=== PATIENT | male | born 1975 | race Caucasian/White ===

== ENCOUNTER 2024-05-28 19:40 | Emergency (ER) | payer SELFPAY ==
[2024-05-28 20:08] VITALS: BP 195/117; PULSE 89; TEMP 36.7; O2SAT 98; BMI 43.0
--- NOTE | 2024-05-28 20:12 | XR_ITS ---
The [place] [id number] Patient Name: ASIA SHELL MRN: [id number] date: 1975 Sex: M Assigned Patient Location: ER Current Patient Location: Accession/Order Number: [id number] Exam Date: 05/28/2024 20:19 Report Date: 05/28/2024 21:44 At the request of: SALVADOR SCHMIDT Procedure: XR shoulder LT min 2V EXAM: XR shoulder LT min 2V , 05/28/2024 HISTORY: injury COMPARISON: Previous x-ray from 2019 and MRI left shoulder from 2019. TECHNIQUE: X-rays of the left shoulder, 3 views. FINDINGS: Moderate degenerative changes of the left acromioclavicular joint. Mild degenerative changes at the glenohumeral articulation. No fracture or dislocation. Bones are well-mineralized. XR/XR shoulder LT min 2V IMPRESSION: No fracture or dislocation left shoulder. Electronically authenticated by: ALONDRA SCHWAB Date: 05/28/2024 21:44
--- NOTE | 2024-05-28 20:12 | XR_ITS ---
The [address] [address] Patient Name: ASIA SHELL MRN: [id number] date: 1975 Sex: M Assigned Patient Location: ER Current Patient Location: Accession/Order Number: [id number] Exam Date: 05/28/2024 20:19 Report Date: 05/28/2024 21:44 At the request of: SALVADOR SCHMIDT Procedure: XR forearm LT 2V EXAM: XR forearm LT 2V HISTORY: injury COMPARISON: None. TECHNIQUE: 2 views of the left forearm FINDINGS: No acute fracture of the left radius and ulna is seen. Soft tissues appear unremarkable. XR/XR forearm LT 2V IMPRESSION: No acute fracture of the left radius and ulna. Electronically authenticated by: JERICA ELLER Date: 05/28/2024 21:44
--- NOTE | 2024-05-28 20:26 | XR_ITS ---
The [address] [address] Patient Name: ASIA SHELL MRN: [id number] date: 1975 Sex: M Assigned Patient Location: ER Current Patient Location: ER Accession/Order Number: [id number] Exam Date: 05/28/2024 20:19 Report Date: 05/28/2024 21:45 At the request of: SALVADOR SCHMIDT Procedure: XR wrist LT min 3V EXAMINATION: XR wrist LT min 3V, , 05/28/2024 8:19 PM EDT INDICATION: injury HISTORY: Ordering Provider Reason for Exam: injury Technologist Note: Additional: COMPARISON: None. TECHNIQUE: Left wrist x-ray: 3 view(s). FINDINGS: No acute fracture. Joint alignment is anatomic. Joint spaces are preserved. Soft tissues are within normal limits. XR/XR wrist LT min 3V IMPRESSION: No acute fracture or traumatic malalignment. Electronically authenticated by: JERICA ELLER Date: 05/28/2024 21:45
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
== END 2024-05-28 21:38 | disposition home or self-care (01) ==
PROVIDERS: Emergency Provider Emergency Medicine; PCP Internal Medicine
DX: S46.912A Strain of unspecified muscle, fascia and tendon at shoulder and upper arm level, left arm, initial encounter (principal); S60.212A Contusion of left wrist, initial encounter; V03.10XA Pedestrian on foot injured in collision with car, pick-up truck or van in traffic accident, initial encounter
CPT/HCPCS: 73030; 73090; 73110; 99283

== ENCOUNTER 2024-12-27 02:30 | Emergency (ER) | payer OTHER, SELFPAY ==
--- OUTSIDE RECORDS SUMMARY | 2024-12-24 14:22 | XMS_ITS ---
Author Name Auto Generated Organization OHIP Support Name Relationship Address Phone MOFFIT, RAYGAN Next of Kin Unknown [phone] MOFFIT, RAYGAN Next of Kin Unknown [phone] MOFFIT, RAYGAN Next of Kin Unknown [phone] MOFFIT, RAYGAN Next of Kin Unknown [phone] MOFFIT, RAYGAN Next of Kin Unknown [phone] MOFFIT, RAYGAN Next of Kin Unknown [phone] MOFFIT, RAYGAN Next of Kin Unknown [phone] MOFFIT, RAYGAN Next of Kin Unknown [phone] MOFFIT, RAYGAN Next of Kin Unknown [phone] MOFFIT, RAYGAN Next of Kin Unknown [phone] MOFFIT, RAYGAN Next of Kin Unknown [phone] MOFFIT, RAYGAN Next of Kin Unknown [phone] MOFFIT, RAYGAN Next of Kin Unknown [phone] MOFFIT, RAYGAN Next of Kin Unknown [phone] MOFFIT, RAYGAN Next of Kin Unknown [phone] MOFFIT, RAYGAN Next of Kin Unknown [phone] MOFFIT, RAYGAN Next of Kin Unknown [phone] MOFFIT, RAYGAN Next of Kin Unknown [phone] MOFFIT, RAYGAN Next of Kin Unknown [phone] MOFFIT, RAYGAN Next of Kin Unknown [phone] MOFFIT, RAYGAN Next of Kin Unknown [phone] MOFFIT, RAYGAN Next of Kin Unknown [phone] MOFFIT, RAYGAN Next of Kin Unknown [phone] MOFFIT, RAYGAN Next of Kin Unknown [phone] MOFFIT, RAYGAN Next of Kin Unknown +[phone] [facility] [place] Next of Kin Unknown +[phone] Care Team Providers Care Outpatient Services Director Name Role Phone Dmitri RAGLAND Attending Unavailable Dmitri RAGLAND Admitting Unavailable Dmitri RAGLAND Attending Unavailable Dmitri RAGLAND Admitting Unavailable Brown, DO Janusz A Admitting Unavailable Brown, DO Janusz A Attending Unavailable Brown, DO Janusz A Referring Unavailable Brown, DO Janusz A Admitting Unavailable Brown, DO Janusz A Attending Unavailable Brown, DO Janusz A Referring Unavailable Dmitri RAGLAND Attending Unavailable ELLYN, Dmitri Green Referring Unavailable Brown, DO Janusz A Admitting Unavailable Brown, DO Janusz A Attending Unavailable Brown, DO Janusz A Referring Unavailable Dmitri RAGLAND Attending Unavailable ELLYN, Dmitri Green Attending Unavailable ELLYN, Dmitri Green Attending Unavailable Cammy Esqueda Attending Unavailable Danny Gan Attending Unavailable Brown, DO Janusz A Admitting Unavailable Brown, DO Janusz A Attending Unavailable Brown, DO Janusz A Referring Unavailable BROWN, JANUSZ A Attending Unavailable BROWN, JANUSZ A Referring Unavailable BROWN, JANUSZ A Attending Unavailable BROWN, JANUSZ A Attending Unavailable ANA LILIA GARCIA Attending Unavailable BROWN, JANUSZ A Referring Unavailable BRJI CRUZ Attending Unavailable BROWN, JANUSZ A Referring Unavailable KELBLEY, MICHELLE Attending Unavailable BROWN, JANUSZ A Referring Unavailable KELBLEY, MICHELLE Attending Unavailable BROWN, JANUSZ A Referring Unavailable KELBLEY, MICHELLE Attending Unavailable BROWN, JANUSZ A Referring Unavailable BRJI CRUZ Attending Unavailable BROWN, JANUSZ A Referring Unavailable BRJI CRUZ Attending Unavailable BROWN, JANUSZ A Referring Unavailable KELBLEY, MICHELLE Attending Unavailable BROWN, JANUSZ A Referring Unavailable KELBLEY, MICHELLE Attending Unavailable BROWN, JANUSZ A Referring Unavailable KELBLEY, MICHELLE Attending Unavailable BROWN, JANUSZ A Referring Unavailable BROWN, JANUSZ A Referring Unavailable BROWN, JANUSZ A Attending Unavailable BROWN, JANUSZ A Referring Unavailable BROWN, JANUSZ A Attending Unavailable BROWN, JANUSZ A Referring Unavailable KELBLEY, MICHELLE Attending Unavailable BROWN, JANUSZ A Referring Unavailable BLACKSANA LILIA TRIANA Attending Unavailable BROWN, JANUSZ A Referring Unavailable BROWN, JANUSZ A Attending Unavailable BRJI CRUZ Attending Unavailable BROWN, JANUSZ A Referring Unavailable BLACKSANA LILIA TRIANA Attending Unavailable BROWN, JANUSZ A Referring Unavailable KELBLEY, MICHELLE Attending Unavailable BROWNJANUSZ Referring Unavailable MICHELLE MORAN Attending Unavailable MELITONJANUSZ Referring Unavailable MICHELLE MORAN Attending Unavailable JANUSZ COELHO Referring Unavailable MICHELLE MORAN Attending Unavailable JANUSZ COELHO Referring Unavailable PROBLEMS No Problem Records Found PROCEDURES No Procedure Records Found RESULTS PATIENT EDUCATION Observed: 10/30/2024 11:39 AM Status: C Source: [facility] Patient Education Cardiovascular Hypertension, Adult Hypertension is another name for high blood pressure. High blood pressure forces your heart to work harder to pump blood. This can cause problems over time. There are two numbers in a blood pressure reading. There is a top number (systolic) over a bottom number (diastolic). It is best to have a blood pressure that is below 120/80. What are the causes? The cause of this condition is not known. Some other conditions can lead to high blood pressure. What increases the risk? Some lifestyle factors can make you more likely to develop high blood pressure: ??? Smoking. ??? Not getting enough exercise or physical activity. ??? Being overweight. ??? Having too much fat, sugar, calories, or salt (sodium) in your diet. ??? Drinking too much alcohol. Other risk factors include: ??? Having any of these conditions: ? Heart disease. ? Diabetes. ? High cholesterol. ? Kidney disease. ? Obstructive sleep apnea. ??? Having a family history of high blood pressure and high cholesterol. ??? Age. The risk increases with age. ??? Stress. What are the signs or symptoms? High blood pressure may not cause symptoms. Very high blood pressure (hypertensive crisis) may cause: ??? Headache. ??? Fast or uneven heartbeats (palpitations). ??? Shortness of breath. ??? Nosebleed. ??? Vomiting or feeling like you may vomit (nauseous). ??? Changes in how you see. ??? Very bad chest pain. ??? Feeling dizzy. ??? Seizures. How is this treated? This condition is treated by making healthy lifestyle changes, such as: ? Eating healthy foods. ? Exercising more. ? Drinking less alcohol. ??? Your doctor may prescribe medicine if lifestyle changes do not help enough and if: ? Your top number is above 130. ? Your bottom number is above 80. ??? Your personal target blood pressure may vary. Follow these instructions at home: Eating and drinking ??? If told, follow the DASH eating plan. To follow this plan: ? Fill one half of your plate at each meal with fruits and vegetables. ? Fill one fourth of your plate at each meal with whole grains. Whole grains include whole-wheat pasta, brown rice, and whole-grain bread. ? Eat or drink low-fat dairy products, such as skim milk or low-fat yogurt. ? Fill one fourth of your plate at each meal with low-fat (lean) proteins. Low- fat proteins include fish, chicken without skin, eggs, beans, and tofu. ? Avoid fatty meat, cured and processed meat, or chicken with skin. ? Avoid pre-made or processed food. ??? Limit the amount of salt in your diet to less than 1,500 mg each day. ??? Do not drink alcohol if: ? Your doctor tells you not to drink. ? You are , may be , or are planning to become . ??? If you drink alcohol: ? Limit how much you have to: ? 0?1 drink a day for women. ? 0?2 drinks a day for men. ? Know how much alcohol is in your drink. In the [place] one drink equals one 12 oz bottle of beer (355 mL), one 5 oz glass of wine (148 mL), or one 1? oz glass of hard liquor (44 mL). Lifestyle ??? Work with your doctor to stay at a healthy weight or to lose weight. Ask your doctor what the best weight is for you. ??? Get at least 30 minutes of exercise that causes your heart to beat faster (aerobic exercise) most days of the week. This may include walking, swimming, or biking. ??? Get at least 30 minutes of exercise that strengthens your muscles (resistance exercise) at least 3 days a week. This may include lifting weights or doing Pilates. ??? Do not smoke or use any products that contain nicotine or tobacco. If you need help quitting, ask your doctor. ??? Check your blood pressure at home as told by your doctor. ??? Keep all follow-up visits. Medicines ??? Take dqsl-fth-orszfra and prescription medicines only as told by your doctor. Follow directions carefully. ??? Do not skip doses of blood pressure medicine. The medicine does not work as well if you skip doses. Skipping doses also puts you at risk for problems. ??? Ask your doctor about side effects or reactions to medicines that you should watch for. Contact a doctor if: ??? You think you are having a reaction to the medicine you are taking. ??? You have headaches that keep coming back. ??? You feel dizzy. ??? You have swelling in your ankles. ??? You have trouble with your vision. Get help right away if: ??? You get a very bad headache. ??? You start to feel mixed up (confused). ??? You feel weak or numb. ??? You feel faint. ??? You have very bad pain in your: ? Chest. ? Belly (abdomen). ??? You vomit more than once. ??? You have trouble breathing. These symptoms may be an emergency. Get help right away. Call 911. ??? Do not wait to see if the symptoms will go away. ??? Do not drive yourself to the hospital. Summary ??? Hypertension is another name for high blood pressure. ??? High blood pressure forces your heart to work harder to pump blood. ??? For most people, a normal blood pressure is less than 120/80. ??? Making healthy choices can help lower blood pressure. If your blood pressure does not get lower with healthy choices, you may need to take medicine. This information is not intended to replace advice given to you by your health care provider. Make sure you discuss any questions you have with your health care provider. Document Revised: 05/12/2022 Document Reviewed: 05/12/2022 [employer] Patient Education ? 2023 [employer]ENT Sleep Apnea Sleep apnea affects breathing during sleep. It causes breathing to stop for 10 seconds or more, or to become shallow. People with sleep apnea usually snore loudly. It can also increase the risk of: ??? Heart attack. ??? Stroke. ??? Being very overweight (obese). ??? Diabetes. ??? Heart failure. ??? Irregular heartbeat. ??? High blood pressure. The goal of treatment is to help you breathe normally again. What are the causes? The most common cause of this condition is a collapsed or blocked airway. There are three kinds of sleep apnea: ??? Obstructive sleep apnea. This is caused by a blocked or collapsed airway. ??? Central sleep apnea. This happens when the brain does not send the right signals to the muscles that control breathing. ??? Mixed sleep apnea. This is a combination of obstructive and central sleep apnea. What increases the risk? Being overweight. ??? Smoking. ??? Having a small airway. ??? Being older. ??? Being male. ??? Drinking alcohol. ??? Taking medicines to calm yourself (sedatives or tranquilizers). ??? Having family members with the condition. ??? Having a tongue or tonsils that are larger than normal. What are the signs or symptoms? Trouble staying asleep. ??? Loud snoring. ??? Headaches in the morning. ??? Waking up gasping. ??? Dry mouth or sore throat in the morning. ??? Being sleepy or tired during the day. If you are sleepy or tired during the day, you may also: ??? Not be able to focus your mind (concentrate). ??? Forget things. ??? Get angry a lot and have mood swings. ??? Feel sad (depressed). ??? Have changes in your personality. ??? Have less interest in sex, if you are female. ??? Be unable to have an erection, if you are male. How is this treated? Sleeping on your side. ??? Using a medicine to get rid of mucus in your nose (decongestant). ??? Avoiding the use of alcohol, medicines to help you relax, or certain pain medicines (narcotics). ??? Losing weight, if needed. ??? Changing your diet. ??? Quitting smoking. ??? Using a machine to open your airway while you sleep, such as: ? An oral appliance. This is a mouthpiece that shifts your lower jaw forward. ? A CPAP device. This device blows air through a mask when you breathe out (exhale). ? An EPAP device. This has valves that you put in each nostril. ? A BIPAP device. This device blows air through a mask when you breathe in (inhale) and breathe out. ??? Having surgery if other treatments do not work. Follow these instructions at home: Lifestyle ??? Make changes that your doctor recommends. ??? Eat a healthy diet. ??? Lose weight if needed. ??? Avoid alcohol, medicines to help you relax, and some pain medicines. ??? Do not smoke or use any products that contain nicotine or tobacco. If you need help quitting, ask your doctor. General instructions ??? Take nrgn-vzg-hwdsvyg and prescription medicines only as told by your doctor. ??? If you were given a machine to use while you sleep, use it only as told by your doctor. ??? If you are having surgery, make sure to tell your doctor you have sleep apnea. You may need to bring your device with you. ??? Keep all follow-up visits. Contact a doctor if: ??? The machine that you were given to use during sleep bothers you or does not seem to be working. ??? You do not get better. ??? You get worse. Get help right away if: ??? Your chest hurts. ??? You have trouble breathing in enough air. ??? You have an uncomfortable feeling in your back, arms, or stomach. ??? You have trouble talking. ??? One side of your body feels weak. ??? A part of your face is hanging down. These symptoms may be an emergency. Get help right away. Call your local emergency services (911 in the [place] ??? Do not wait to see if the symptoms will go away. ??? Do not drive yourself to the hospital. Summary ??? This condition affects breathing during sleep. ??? The most common cause is a collapsed or blocked airway. ??? The goal of treatment is to help you breathe normally while you sleep. This information is not intended to replace advice given to you by your health care provider. Make sure you discuss any questions you have with your health care provider. Document Revised: 03/02/2022 Document Reviewed: 07/02/2021 [employer] Patient Education ? 2023 [employer] FAMILY MEDICINE OFFICE/CLINI C NOTE Observed: 10/30/2024 10:43 AM Status: F Source: [facility] Family Medicine Office/Clini c Note Chief Complaint Patient here for yearly Preventive Exam--had labs done. Had left shoulder surgery 09-13-[address] Coelho. Hasn't smoked x 2 months. HPI Staff Last colonoscopy 09-29-2021 History of Present Illness Here for preventive visit. He had L shoulder surgery last month. He is recovering from that. He has htn. He denies CP or SOB. He quit smoking and has gained weight. He wants to get his weight down. Review of Systems PHQ Score Initial Depression Screen Score: 0 SCORE Physical Exam Vitals & Measurements T: 36.7 ???C(Oral) HR: 71(Peripheral) BP: 132/84 SpO2: 96% HT: 180 cm HT: 71 in WT: 326.284 lb WT: 148 kg BMI: 45.68 General: Well developed, well nourished, in no acute distress Eyes: Pupils equal, round, and reactive to light. Conjunctivae and sclerae normal, and extraocular movements intact Ears: TM clear, grossly normal hearing Nose: No deformity, discharge, inflammation, or lesions Mouth: MMM. Oropharynx and posterior pharynx without lesions or exudates. Tongue WNL Neck: _no bruit Lungs: Normal respiratory effort and clear to auscultation Cardio: Regular rate and rhythm, normal S1 and S2, no murmur, no rub Abdomen: Soft, non-distended, non-tender Musculoskeletal: No joint swelling or synovitis noted Extremity: No clubbing, cyanosis or edema. Neurologic: Grossly normal Skin: No rashes, ulcerations, or suspicious lesions Mental Status: Alert and oriented x3. Normal mood and affect Assessment/Plan 1. Preventative health care (Z00.00: Encounter for general adult medical examination without abnormal findings) He is up to date on labs He had colonoscopy in 2021 and is due in 2026 2. Hypertension (I10: Essential (primary) hypertension) stay on amlodipine try to get weight down Ordered: [facility] [place] Internal Ambulatory Referral 3. Hyperlipidemia, mixed (E78.2: Mixed hyperlipidemia) Chol: 215 mg/dL High (10/22/24 10:00:00) HDL: 68 mg/dL (10/22/24 10:00:00) LDL Direct: 150 mg/dL High (10/22/24 10:00:00) Tri mg/dL (10/22/24 10:00:00) VLDL: 18 mg/dL (10/22/24 10:00:00) will send to maxillofacial prosthetics dentist Ordered: [facility] [place] Internal Ambulatory Referral 4. Fasting hyperglycemia (R73.01: Impaired fasting glucose) Hgb A1C %: 5.5 % (10/22/24 10:00:00) Ordered: [facility] [place] Internal Ambulatory Referral 5. Erectile dysfunction (N52.9: Male erectile dysfunction, unspecified) He would like try Cialis Ordered: tadalafil, 10 mg = 1 tab(s), Oral, Daily, PRN for erectile dysfunction, # 10 tab(s), Refills(s) 5, Pharmacy: [facility]/pharmacy #[id number], 180, cm, 10/30/24 11:16:00 EDT, Height/Length Dosing, 148, kg, 10/30/24 11:16:00 EDT, Weight Dosing 6. Encounter for weight management (Z76.89: Persons encountering health services in other specified circumstances) will refer to maxillofacial prosthetics dentist first we also discussed meds like Mounjaro and Ozempic Ordered: [facility] [place] Internal Ambulatory Referral 7. Adult BMI 45.0-49.9 kg/sq m (Z68.42: Body mass index [BMI] 45.0-49.9, adult) The standard range for ages 18 and older is >=18.5 and < 25 kg/m2. Your BMI today was above this range, this falls in the overweight to obese category and there are medical benefits to weight loss. We can offer counselling, referral, and/or medical support in addressing this problem. Your BMI and weight management will be followed at subsequent visits. 8. Class 3 severe obesity due to excess calories with body mass index (BMI) of 45.0 to 49.9 in adult (E66.813: Obesity, class 3) 9. Obstructive sleep apnea on CPAP (G47.33: Obstructive sleep apnea (adult) (pediatric)) He is compliant with CPAP and it is benefitting him Ordered: Misc Prescription, CPAP supplies, See Instructions, 1 EA, 1, Uses nightly with his CPAP, Supply Follow-up With When Contact Information ELLYN SINGLETON, Dmitri K, MED In 6 months [facility] [address] [place] [address]- Additional Instructions: Dmitri RAGLAND MD, MED In 6 months [facility] [address], [place] [address]- Additional Instructions: Patient Education Sleep Apnea, Lsit-ei-Obbm Hypertension, Adult, Sctt-pk-Jmjx Problem List/Past Medical History Ongoing Chronic sinusitis Encounter for weight management Erectile dysfunction Family history of early CAD Fasting hyperglycemia Hearing loss in left ear Hyperlipidemia, mixed Hypertension IBS (irritable bowel syndrome) Insomnia Left knee pain Left rotator cuff tear Obstructive sleep apnea Preventative health care Shift work sleep disorder Tubular adenoma of colon Historical No qualifying data Procedure/Surgical History Arthroscopy of shoulder (09/13/2024), Colonoscopy (09/29/2021), Arthroscopy of shoulder (03/06/2020), Excision of lipoma, right wrist fusion. Medications acetaminophen 500 mg Tab, 500 mg= 1 tab(s), Oral, q4hr amLODIPine 5 mg Tab, 5 mg= 1 tab(s), Oral, Daily, 4 refills CeleBREX 200 mg Cap, 200 mg= 1 cap(s), Oral, Daily, 1 refills Cialis 10 mg Tab, 10 mg= 1 tab(s), Oral, Daily, PRN, 5 refills Colace 100 mg Cap, 100 mg= 1 cap(s), Oral, BID, PRN CPAP supplies, See Instructions, 1 refills oxyCODONE 5 mg Tab, See Instructions, PRN Allergies penicillin (Unknown) Social History Alcohol - Denies Alcohol Use, 02/27/2020 Current. Beer. 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 Never Smokeless Tobacco Use:. Cigarettes, 10/30/2024 Family History Acute myocardial infarction: Mother. Alive: Mother and Father. Primary malignant neoplasm of prostate: Father. Immunizations Vaccine Date Status Comments influenza virus vaccine, inactivated - Not Given Patient Refusesinfluenza virus vaccine, inactivated - Not Given Patient Refusesinfluenza virus vaccine, inactivated - Not Given Patient SanxewmSMEX-QlQ-2 (COVID-19) mRNA BNT-162b2 vax 09/01/2021 Recorded influenza virus vaccine, inactivated - Not Given Postpone due to refusal SARS-CoV-2 (COVID-19) mRNA BNT-162b2 vax 11/24/2020 [facility] SARS-CoV-2 (COVID-19) mRNA BNT-162b2 vax 11/03/2020 [facility]ed [facility] influenza virus vaccine, inactivated - Not Given Patient Refuses Result Comment: Electronical ly Signed By: ELLYN SINGLETON, Dmitri Green\.br\Date and Time Signed: 10/30/24 11:39 EDT AMBULATORY VISIT SUMMARY Observed: 10/30 10:43 AM Status: F Source: [facility] Ambulatory Visit Summary ASIA SHELL :1975 Visit Date:10/30/2024 Ambulatory Visit Instructions Your Diagnosis Preventative health care Hypertension Hyperlipidemia, mixed Fasting hyperglycemia Erectile dysfunction Encounter for weight management Adult BMI 45.0-49.9 kg/sq m Class 3 severe obesity due to excess calories with body mass index (BMI) of 45.0 to 49.9 in adult Obstructive sleep apnea on CPAP Your Care Team Attending Physician - Dmitri RAGLAND MD Primary Care Physician - Dmitri RAGLAND MD [facility] ([facility] supplies) tadalafil (Cialis 10 mg Tab) Contact prescribing physician if questions or concerns acetaminophen (acetaminophen 500 mg Tab) amlodipine (amLODIPine 5 mg Tab) celecoxib (CeleBREX 200 mg Cap) docusate (Colace 100 mg Cap) oxycodone (oxyCODONE 5 mg Tab) Procedures Performed Arthroscopy of shoulder (09/13/2024), Colonoscopy (09/29/2021), Arthroscopy of shoulder (03/06/2020), Excision of lipoma, right wrist fusion. Discharge Vitals Temperature (Oral) 36.7 ???C Heart Rate (Peripheral) 71 Blood Pressure 132/84 Height 180 cm Height 71 in Weight 148 kg Weight 326.284 lb BMI 45.68 What to do next Scheduled Follow-Up Appointments Monday 3:00 PM EDT With: Dmitri RAGLAND MD Where: [facility] [address] [place] [address]- You Need to Schedule the Following Appointments Follow Up with Dmitri RAGLAND MD, NISREEN When: In 6 months Where: [facility] [address] [place] [address]- Follow Up with Dmitri RAGLAND MD, MED When: In 6 months Where: [facility] [address] [place] [address]- Medications What How Much When Why Instructions New tadalafil (Cialis 10 mg Tab) 1 Tablets By Mouth Every day as needed for for erectile dysfunction Erectile dysfunction Refills: 5 Pickup at [facility]/pharmacy #[id number] Unchanged Misc Prescription (CPAP supplies) See instructions Obstructive sleep apnea Uses nightly with his CPAP Printed Prescription Unchanged acetaminophen (acetaminophen 500 mg Tab) 1 Tablets By Mouth Every 4 hours Contact prescribing physician if questions or concerns Unchanged amlodipine (amLODIPine 5 mg Tab) 1 Tablets By Mouth Every day Hypertension Contact prescribing physician if questions or concerns Unchanged celecoxib (CeleBREX 200 mg Cap) 1 Capsules By Mouth Every day start after finishing ketorolac Contact prescribing physician if questions or concerns Unchanged docusate (Colace 100 mg Cap) 1 Capsules By Mouth 2 times a day as needed for for constipation Contact prescribing physician if questions or concerns Unchanged oxycodone (oxyCODONE 5 mg Tab) See instructions 1-2 tab(s) Oral q4hr Contact prescribing physician if questions or concerns Pharmacy Information [facility]/pharmacy #[id number]: [address], [place] [id number] [phone] Allergies penicillin (Unknown) Problems Ongoing - Any problem that you are currently receiving treatment for. Chronic sinusitis Encounter for weight management Erectile dysfunction Family history of early CAD Fasting hyperglycemia Hearing loss in left ear Hyperlipidemia, mixed Hypertension IBS (irritable bowel syndrome) Insomnia Left knee pain Left rotator cuff tear Obstructive sleep apnea Preventative health care Shift work sleep disorder Tubular adenoma of colon Patient Survey You may receive a survey via text or e-mail asking about your office visit. Please share your experience with us by completing your survey. We appreciate your feedback and thank you for choosing us for your care. Education Materials Sleep Apnea Sleep apnea affects breathing during sleep. It causes breathing to stop for 10 seconds or more, or to become shallow. People with sleep apnea usually snore loudly. It can also increase the risk of: ??? Heart attack.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 Description of the procedure, risks, benefits, and alternatives was provided, The patient's questions were addressed. Time out: Confirmed correct patient, procedure and site. Time: Date/Time 09/13/2024 12:20:00. Indication: Block for postoperative pain management as requested by surgeon. Anesthesia Method: IV Sedation with monitored anesthesia care, The patient remained awake and able to interact in a meaningful way throughout the procedure. Preparation: The patient was placed in the following position Sitting, Continuous pulse oximetry applied, Using maximal sterile barrier technique per current [facility] guidelines including hand hygeine, Guidance (Ultrasound used to identify anatomical landmarks, Using sterile gel and probe covers, Permanent image retained), The site was prepped with ChloraPrep. Procedure: Anesthetic Agent attempt x 2 with small probe and 50mm needle- unable to maintain quality image and coordinate needle visualization do to patient size; 3rd attempt with large probe and 100 needle- skin/SQ with 3cc 2% lido; 21g 100mm insulated echogenic block needle with ultrasound; 10 cc .5% bupiv and 133mg exparel in 10cc in increments; needle tip visualized throughout; low pressure injection; no motor response ant 2.5 mAmps, Needle was inserted without pain or parasthesia in the conscious patient, Number of attempts 3, Negative attempt at aspiration for blood, Medial and lateral spread of the anesthestic was observed, Periodic negative attempts at aspiration of blood were made as the local was injected, No pain or parathesia were elicited with injection of the anesthetic in the conscious patient, It was idetified that the correct anesthetic agent was administered to the correct site. Complications: None, The patient tolerated the procedure as expected. PROGRESS NOTE-PHYSICIAN Observed: 2024 3:42 PM Status: F Source: [facility] Progress Note-Physician Patient: ASIA SHELL Age: 49 years Sex: Male : 1975 Associated Diagnoses: None Author: Barrett Manning MD Postoperative Information Postoperative disposition: Postoperative disposition: To PACU. Optimetrix number: Optimetrix number [id number]. Anesthetic utilized: General. Regional: Interscalene Block. Health Status Allergies: Allergic Reactions (Selected) Severity Not Documented Penicillin- Unknown. Physical Examination Vital Signs 09/13/2024 15:09 EST Systolic Blood Pressure 127 mmHg Diastolic Blood Pressure 81 mmHg Mean Arterial Pressure, Monitered 96 mmHg 09/13/2024 14:55 EST Temperature Temporal Artery 36.5 DegC Heart Rate Monitored 86 bpm Respiratory Rate Monitored 15 br/min Systolic Blood Pressure 98 mmHg Diastolic Blood Pressure 71 mmHg Blood Pressure Location Right arm Mean Arterial Pressure, Cuff 80 mmHg SpO2 90 % Pain Assessment: Controlled. General: Awake, Appropriate. Respiratory: Adequate air exchange. Cardiovascular: Stable. Neurological Assessment Anesthetic outcome No anesthetic complications noted. Adequate pain relief. Review / Management Condition: Stable. Plan Transfer/Discharge: Transfer/Discharge Discharge when meets criteria ( To home ). Result Comment: Electronical ly Signed By: Barrett Manning MD\.br\Date and Time Signed: 09/13/24 15:43 EST PROGRESS NOTE-PHYSICIAN Observed: 2024 3:00 PM Status: UNK Source: [facility] Progress Note-Physician Patient: ASIA SHELL Age: 49 years Sex: Male : 1975 Associated Diagnoses: None Author: Barrett Manning MD Postoperative Information Postoperative disposition: Postoperative disposition: To PACU. Optimetrix number: Optimetrix number [id number]. Anesthetic utilized: General. Regional: Interscalene Block. Health Status Allergies: Allergic Reactions (Selected) Severity Not Documented Penicillin- Unknown. Physical Examination VS/Measurements Pain Assessment: Controlled. General: Awake, Appropriate. Respiratory: Adequate air exchange. Cardiovascular: Stable. Neurological Assessment Anesthetic outcome No anesthetic complications noted. Adequate pain relief. Review / Management Condition: Stable. Plan Transfer/Discharge: Transfer/Discharge Discharge when meets criteria ( To home ). Result Comment: duplicate- p lease delete Electronically Signed By: Barrett Manning MD\.br\Date and Time Signed: 09/27/24 12:13 EST DISCHARGE INSTRUCTIONS Observed: 025 2:30 PM Status: F Source: [facility] Discharge Instructions ASIA SHELL :1975 Visit Date:09/13/2024 Inpatient Discharge Instructions Your Care Team Admitting Physician - Janusz Coelho DO Referring Physician - Janusz Coelho DO Reason for Your Visit LEFT SHOULDER LABRAL TEAR This Is Your Medications List Misc Prescription (CPAP supplies) acetaminophen (acetaminophen 500 mg Tab) amlodipine (amLODIPine 5 mg Tab) celecoxib (CeleBREX 200 mg Cap) docusate (Colace 100 mg Cap) gabapentin (gabapentin 300 mg Cap) ketorolac (ketorolac 10 mg Tab) oxycodone (oxyCODONE 5 mg Tab) Procedure History Colonoscopy (09/29/2021), Arthroscopy of shoulder (03/06/2020), Excision of lipoma, right wrist fusion. What to do next Previously Scheduled Follow-Up Appointments Monday 11:00 AM EDT With: ELLYN SINGLETON, Dmitri Green Where: [facility] [address] [place] [address]- New Follow Up Appointments after Discharge Follow Up with Janusz Coelho When: 09/24/2024 03:30 PM EST Comments: Appointment has already been scheduled Call for any problems. Where: [address] [place] [address]- Business (1) Medications What How Much When Why Instructions Next Dose New acetaminophen (acetaminophen 500 mg Tab) 1 Tablets By Mouth Every 4 hours Pickup at [facility]/pharmacy #[id number] New celecoxib (CeleBREX 200 mg Cap) 1 Capsules By Mouth Every day Refills: 1 start after finishing ketorolac Pickup at [facility]/pharmacy #6177 New docusate (Colace 100 mg Cap) 1 Capsules By Mouth 2 times a day as needed for for constipation Pickup at [facility]/pharmacy #6177 New gabapentin (gabapentin 300 mg Cap) 1 Capsules By Mouth 3 times a day Duration: 14 Days Pickup at [facility]/pharmacy #6177 New ketorolac (ketorolac 10 mg Tab) 1 Tablets By Mouth Every 8 hours Duration: 3 Days Pickup at [facility]/pharmacy #6177 New oxycodone (oxyCODONE 5 mg Tab) See instructions 1-2 tab(s) Oral q4hr Pickup at [facility]/pharmacy #6177 Unchanged amlodipine (amLODIPine 5 mg Tab) 1 Tablets By Mouth Every day Hypertension Unchanged Misc Prescription (CPAP supplies) See instructions Obstructive sleep apnea Uses nightly with his CPAP Pharmacy Information [facility]/pharmacy #[id number]: [address], [place] [id number] [phone] Test Results No qualifying data available. Allergies penicillin (Unknown) Problems Ongoing - Any problem that you are currently receiving treatment for. Chronic sinusitis Family history of early CAD Fasting hyperglycemia Hearing loss in left ear Hyperlipidemia, mixed Hypertension IBS (irritable bowel syndrome) Insomnia Left knee pain Left rotator cuff tear Obstructive sleep apnea Preop examination Preventative health care Shift work sleep disorder Tubular adenoma of colon Education Materials [place], [place] [facility] AFTER YOUR SHOULDER ARTHROSCOPY 1. Diet: Begin with a liquid diet and advance to your normal diet as tolerated. 2. Activity: You may remove your sling for bathing and to perform gentle range of motion exercises for the hand, wrist, and elbow. Bend and straighten your elbow and wrist several times per day to minimize stiffness. Keep your elbow in close to your side when performing these exercises. Do not move your shoulder until instructed by your surgeon. Swelling after surgery is normal and this will gradually decrease over time. All sports activities are discouraged, at least until your first post-operative visit at which time we will discuss how and when to resume sports. 3. Driving: Driving is legal. If you are involved in an accident, you must be able to prove that you maintained full control of your vehicle. For this reason, it is advised that you do not drive until your strength returns. You should not operate a vehicle or heavy machinery if you are taking narcotic pain medication. 4. Pain: If pain persists despite rest, elevation, and medication, contact your surgeon. You will be given a prescription for pain medications prior to leaving the hospital. Please inform us of any known drug allergy. If you have any problems with the medication, it should be discontinued and our office notified. The sensation of splashing of fluid inside the joint is not cause for concern. It represents residual fluids from surgery and they will be absorbed. Elevation of the arm and application of an ice pack will minimize swelling and discomfort in the first 48 hours after surgery. 5. Bandage: Soft compression dressing has been applied to your shoulder. This dressing should be comfortable and absorb any leakage of fluid or blood from your operated shoulder. Although the dressing may become moist or blood stained, this is not usually a cause for concern. If this persists, notify your surgeon. You may remove the dressing 48 hours after your surgery. If you have a bandage in your armpit, leave this in place until follow up. Apply betadine and band-aids to the small incisions once or twice daily as needed. 6. Incisions: The portals of entry may be sore and develop bruising over the next several days. The bruising eventually resolves and does not require any special care. Do not apply creams or lotions to your shoulder. Your portals will heal well on their own. 7. Bathing: You may shower 48 hours after surgery. Bathing or soaking in water should be avoided until your first post-operative visit. 8. Precautions: If you develop fever (101 degrees or above), increasing pain (not relieved by rest, elevation, ice, and medication as prescribed), redness or swelling in your shoulder or arm, please contact the office or the hospital. If you notice increased drainage from the operative portals after the third day, this should also be reported. 9. Return Visit: Your first post-operative follow-up appointment is generally between 7 and 14 days after discharge from the hospital. You will be given an appointment card with your appointment information. Do not hesitate to call the office or the hospital if any problems or questions arise before your appointment. Janusz Coelho, DO [facility] [address] [place] [address] Reviewed: Common Emergency Awareness Tips IS IT A STROKE? Act FAST and Check for these signs: FACE Does the face look uneven? ARM Does one arm drift down? SPEECH Does their speech sound strange? TIME Call at any sign of stroke Heart Attack Signs Chest discomfort: Most heart attacks involve discomfort in the center of the chest and lasts more than a few minutes, or goes away and comes back. It can feel like uncomfortable pressure, squeezing, fullness or pain. Discomfort in upper body: Symptoms can include pain or discomfort in one or both arms, back, neck, jaw or stomach. Shortness of breath: With or without discomfort. Other signs: Breaking out in a cold sweat, nausea, or lightheaded. Remember, MINUTES DO MATTER. If you experience any of these heart attack warning signs, call to get immediate medical attention! Patient Survey You may receive a survey in the mail asking you about your stay with us. We want to hear from you, please share your experience with us by completing your survey. Thank you for choosing [facility]. Hermelinda Award Nomination The HERMELINDA (Diseases Attacking the Immune SYstem) Award is an international recognition program that honors and celebrates the skillful, compassionate care nurses provide every day. Anyone who experiences or observes amazing care being provided by a nurse is encouraged to submit a nomination. To nominate your nurse, use your smart phone to scan the QR code below. Patient Portal You may access all of your results and other medical record information on our secure patient portal. If you are not signed up for this yet, please contact [employer] at [phone] to get signed up today. Patient Name: ASIA SHELL I have received this information and my questions have been answered. Patient/Shove Up Name: Patient/Shove Up Signature: Relationship to Patient: Witness Name/Signature: Date: Result Comment: Electronical ly Signed By: Alvaro ZAVALA, Nilsa Alejandra\.br\Date and Time Signed: 09/13/24 14:31 EST PATIENT EDUCATION - TEXT Observed: 09/13 2:30 PM Status: C Source: [facility] Patient Education - Text [place], [place] [facility] AFTER YOUR SHOULDER ARTHROSCOPY 1. Diet: Begin with a liquid diet and advance to your normal diet as tolerated. 2. Activity: You may remove your sling for bathing and to perform gentle range of motion exercises for the hand, wrist, and elbow. Bend and straighten your elbow and wrist several times per day to minimize stiffness. Keep your elbow in close to your side when performing these exercises. Do not move your shoulder until instructed by your surgeon. Swelling after surgery is normal and this will gradually decrease over time. All sports activities are discouraged, at least until your first post-operative visit at which time we will discuss how and when to resume sports. 3. Driving: Driving is legal. If you are involved in an accident, you must be able to prove that you maintained full control of your vehicle. For this reason, it is advised that you do not drive until your strength returns. You should not operate a vehicle or heavy machinery if you are taking narcotic pain medication. 4. Pain: If pain persists despite rest, elevation, and medication, contact your surgeon. You will be given a prescription for pain medications prior to leaving the hospital. Please inform us of any known drug allergy. If you have any problems with the medication, it should be discontinued and our office notified. The sensation of splashing of fluid inside the joint is not cause for concern. It represents residual fluids from surgery and they will be absorbed. Elevation of the arm and application of an ice pack will minimize swelling and discomfort in the first 48 hours after surgery. 5. Bandage: Soft compression dressing has been applied to your shoulder. This dressing should be comfortable and absorb any leakage of fluid or blood from your operated shoulder. Although the dressing may become moist or blood stained, this is not usually a cause for concern. If this persists, notify your surgeon. You may remove the dressing 48 hours after your surgery. If you have a bandage in your armpit, leave this in place until follow up. Apply betadine and band-aids to the small incisions once or twice daily as needed. 6. Incisions: The portals of entry may be sore and develop bruising over the next several days. The bruising eventually resolves and does not require any special care. Do not apply creams or lotions to your shoulder. Your portals will heal well on their own. 7. Bathing: You may shower 48 hours after surgery. Bathing or soaking in water should be avoided until your first post-operative visit. 8. Precautions: If you develop fever (101 degrees or above), increasing pain (not relieved by rest, elevation, ice, and medication as prescribed), redness or swelling in your shoulder or arm, please contact the office or the hospital. If you notice increased drainage from the operative portals after the third day, this should also be reported. 9. Return Visit: Your first post-operative follow-up appointment is generally between 7 and 14 days after discharge from the hospital. You will be given an appointment card with your appointment information. Do not hesitate to call the office or the hospital if any problems or questions arise before your appointment. Janusz Coelho DO [facility] [address] [place] [address] Reviewed: MAIN OR PACU II RECORD Observed: 025 12:58 PM Status: F Source: [facility] Main OR PACU II Record PACU Phase II Document Type FT Summary Primary Physician: Janusz Coelho DO Finalized Date/Time: 09/13/24 17:06:15 Pt. Name: ASIA SHELL/Sex: 1975 Male Med Rec #: [id number] Physician: Janusz Coelho DO Financial #: [id number] Pt. Type: A Room/Bed: [place] [address] Admit/Disch: 09/13/24 08:53:31 - Institution: Case Times PACU II FT Pre-Care Text: Identifies barriers to communication and implements measures to provide psychological support and determines knowledge level Develops individualized plan of care, and ensures continuity of care Maintains patient's dignity and privacy, and maintains patient confidentiality Identifies and reports philosophical, cultural, and spiritual beliefs and values Identifies individual values and wishes concerning care administers prescribed antibiotic therapy and immunizing agents as ordered, Evaluates postoperative tissue perfusion Implements thermoregulation measures, and monitors body temperature Evaluates postoperative respiratory status Evaluates postoperative cardiac status Evaluates postoperative neurological status Assesses pain control, collaborated in initiating patient-controlled analgesia and implements alternative methods of pain control Verifies allergies, administers prescribed medications and solutions, evaluates response to medications Entry 1 In PACU II 09/13/24 15:00:00 Discharge from PACU 09/13/24 16:45:00 II Outcomes Met? Yes Last Modified By: Nilsa Simon RN 09/13/24 17:06:08 Post-Care Text: The patient demonstrates knowledge of the expected response to the operative or invasive procedure The patient's care is consistent with the individualized perioperative plan of care The patient's right to privacy is maintained The patient's value system, lifestyle, ethnicity, and culture are considered, respected, and incorporated into the perioperative plan of care The patient participates in decisions affecting his or her perioperative plan of care. The patient is free from signs and symptoms of infection The patient has wound/tissue perfusion consistent with or improved from baseline levels established preoperatively The patient is at or returning to normothermia at the conclusion of the immediate postoperative period The patient's respiratory function is consistent with or improved from baseline levels established preoperatively The patient's cardiovascular status is consistent with or improved from baseline levels established preoperatively The patient's neurological status is consistent with or improved from baseline levels established preoperatively The patient demonstrates and/or reports adequate pain control throughout the perioperative period The patient received appropriate medication(s), safely administered during the perioperative period Finalized By: Nilsa Simon RN Document Signatures Signed By: Nilsa Simon RN 09/13/24 17:06 MAIN OR PREOPERATIVE RECORD Observed: 12:58 PM Status: F Source: [facility] Main OR Preoperative Record PreOp Document Type FT Summary Primary Physician: Janusz Coelho DO Finalized Date/Time: 09/13/24 13:46:06 Pt. Name: ASIA SHELL/Sex: 1975 Male Med Rec #: [id number] Physician: Janusz Coelho DO Financial #: [id number] Pt. Type: A Room/Bed: [place] [address] Admit/Disch: 09/13/24 08:53:31 - Institution: Case Times PreOp FT Pre-Care Text: Verifies consent for planned procedure, identifies individual values and wishes concerning care, includes family members in perioperative teaching Entry 1 Patient Times. In Pre Surgery 09/13/24 09:00:00 Out Pre Surgery 09/13/24 12:23:00 Outcomes Met? Yes Last Modified By: Sandra Sheikh RN 09/13/24 13:45:58 Post-Care Text: The patient participates in decisions affecting his or her perioperative plan of care Finalized By: Sandra Sheikh RN Document Signatures Signed By: Sandra Sheikh RN 09/13/24 13:46 MAIN OR INTRAOPERATIVE RECORD Observed: 09/13/2024 12:58 PM Status: C Source: [facility] Main OR Intraoperative Recor d IntraOp Document Type FT Summary Primary Physician: Janusz Coelho DO Finalized Date/Time: 09/16/24 12:14:53 Pt. Name: SUMAYAASIA/Sex: 1975 Male Med Rec #: [id number] Physician: Janusz Coelho DO Financial #: [id number] Pt. Type: A Room/Bed: [place] [address] Admit/Disch: 09/13/24 08:53:31 - 09/13/24 16:45:00 Institution: Case Times FT Entry 1 Patient Times In Room 09/13/24 12:25:00 Out Room 09/13/24 14:27:00 Procedure Times Start 09/13/24 12:58:00 Stop 09/13/24 14:17:00 Anesthesia Times Start 09/13/24 12:25:00 Stop 09/13/24 14:27:00 Block Timeout w09/13/24 11:27:00 Anesthesia Last Modified By: Sandra Sheikh RN 09/13/24 14:27:08 General Comments: BLOCK BY DR MANNING, ASSISTED BY SANDRA SHEIKH RN. HEART RATE 67, SPO2 99% ON ROOM AIR. PATIENT TAKEN BACK TO [facility] ON CART WITH SIDE RAILS UP BY SANDRA SHEIKH RN TO AWAIT DEPARTURE TO OR. HANDOFF GIVEN TO [facility] NURSE.SPO2 AND HEART RATE MONITORING RESUMED. Sandra SHAH 09/16/24 Chart opened to review and send charges [facility] Case Attendance FT Entry 1 Entry 2 Entry 3 Case Attendee Forest MUÑOZ, DOLLY OPERATOR, [facility] DO, Janusz Maciel TIME ANALYSIS CLERK, Miryam Grant. Role Performed DOLLY OPERATOR Surgeon - Primary TIME ANALYSIS CLERK Time In 09/13/24 12:25:00 09/13/24 12:50:00 09/13/24 12:25:00 Time Out 09/13/24 14:27:00 09/13/24 14:10:00 09/13/24 14:27:00 Procedure SHOULDER ARTHROSCOPY W/ SHOULDER ARTHROSCOPY W/ SHOULDER ARTHROSCOPY W/ POSSIBLE REPAIR(Left) POSSIBLE REPAIR(Left) POSSIBLE REPAIR(Left) Comments DR MANNING SUPERVISING. OUT OF ROOM [id number] Last Modified By: Joni RN, Sandra Sheikh RN, Sandra Sheikh RN, Sandra Clayton 09/13/24 14:52:16 09/13/24 14:52:16 09/13/24 14:52:16 Entry 4 Entry 5 Entry 6 Case Attendee Joni ZAVALA, Sandra Thomas SENIOR TECHNOLOGIST, Mary Justice SENIOR TECHNOLOGIST, Brenda Thomas Role Performed [employer] Consultant - Primary Scrub - Primary Staff - Other Time In 09/13/24 12:25:00 09/13/24 12:25:00 09/13/24 12:25:00 Time Out 09/13/24 14:27:00 09/13/24 14:27:00 09/13/24 12:45:00 Procedure SHOULDER ARTHROSCOPY W/ SHOULDER ARTHROSCOPY W/ SHOULDER ARTHROSCOPY W/ POSSIBLE REPAIR(Left) POSSIBLE REPAIR(Left) POSSIBLE REPAIR(Left) Comments Last Modified By: Joni RN, Sandra Sheikh RN, Sandra Sheikh RN, Sandra Clayton 09/13/24 14:52:16 09/13/24 14:52:16 09/13/24 14:52:16 Entry 7 Case Attendee Danny Conroy Role Performed Anesthesiologist Engineer Third Assistant Time In 09/13/24 13:23:00 Time Out 09/13/24 14:27:00 Procedure SHOULDER ARTHROSCOPY W/ POSSIBLE REPAIR(Left) Comments DR MANNING SUPERVISING Last Modified By: Sandra Sheikh RN 09/13/24 14:52:16 General Comments: ALVARO LYNCH, ARTHREX REP, ALSO IN ATTENDANCE. SALLY SHAHviscose cellar worker Protocols FT Pre-Care Text: Implements protective measures prior to operative or invasive procedure, confirms identity before the operative or invasive procedure, verifies operative procedure, surgical site, and laterality Entry 1 Procedure(s) SHOULDER ARTHROSCOPY W/ Patient Identity Birthday, ID Band POSSIBLE REPAIR(Left) Verified (select at Check, Patient least 2): Participation Consents / H and P Anesthesia Consent, Operative Site Present Verified H&P, Surgery/Procedure Marking Verified Consent Surgical Site Yes Laterality Verified Yes Verified Procedure Verified Yes Correct Patient Yes Position Verified Availability Equipment, Implant, Prep Dry Yes Verified (If Medication Applicable) PreOp Antibiotic Yes Time Out Forest MUÑOZ, RADHA, Queen Belen Garnett, Janusz Coelho DO, Weisbrod RNFA, Molly A, Crosby RN, Amy J, McClain CST, Kimberly A Time Out Complete 09/13/24 12:57:00 Outcomes Met? Yes Last Modified By: Sandra Sheikh RN 09/13/24 13:39:26 Post-Care Text: The patient is free from signs and symptoms of injury caused by extraneous objects Allergy Information FT Pre-Care Text: Verifies allergies Entry 1 Allergies Reviewed? Yes Allergies Reviewed Self/Patient With Outcomes Met? Yes Last Modified By: Sandra Sheikh RN 09/13/24 13:20:11 Post-Care Text: The patient received appropriate medication(s) safely administered during the perioperative period Surgical Procedures FT Entry 1 Procedure Description Procedure SHOULDER ARTHROSCOPY W/ Modifiers Left POSSIBLE REPAIR Surgeon Description LEFT SHOULDER ARTHROSCOPY WITH REVISION LABRAL REPAIR, EXTENSIVE DEBRIDEMENT Primary Procedure Yes Primary Surgeon Janusz Coelho DO Start 09/13/24 12:58:00 Stop 09/13/24 14:17:00 Anesthesia Type General Surgical Service Orthopedics Wound Class 1 - Clean Last Modified By: Sandra Sheikh RN 09/13/24 14:52:20 General Case Data FT Pre-Care Text: Classifies surgical wound, implements aseptic technique, initiates traffic control Entry 1 Case Information OR OR 5 FT Case Level Level 4 Wound Class 1 - Clean Specialty Orthopedics ASA Class 3 Preop Diagnosis LEFT SHOULDER LABRAL Postop Same As Preop Yes TEAR Postop Diagnosis LEFT SHOULDER LABRAL Outcomes Met? Yes TEAR Last Modified By: Ila Perkins CST 09/16/24 12:14:14 Post-Care Text: The patient is free from signs and symptoms of infection General Comments: 09/16/24 Chart opened to review and send charges LRoth CSFA Skin Assessment (Pre Procedure) FT Pre-Care Text: Implements protective measures to prevent skin/ tissue injury due to thermal or mechanical sources Evaluates for signs and symptoms of physical injury to skin and tissue Entry 1 Skin Integrity Intact, [employer], Warm, & Skin Abnormality No Dry Outcomes Met? Yes Last Modified By: Sandra Sheikh RN 09/13/24 13:20:32 Post-Care Text: The patient is free from signs and symptoms of injury caused by extraneous objects Patient Positioning FT Pre-Care Text: Identifies physical alterations that require additional precautions for procedure-specific positioning, verifies presence of prosthetics or corrective devices, positions the patient, evaluates the patient for signs and symptoms of injury as a result of positioning Entry 1 Procedure SHOULDER ARTHROSCOPY W/ Body Position Beach Chair POSSIBLE REPAIR(Left) Feet Uncrossed? Yes Left Arm Position Other/See Comments Right Arm Position Other/See Comments Left Leg Position Extended Right Leg Position Extended Positioning Device Safety Strap, Spider Positioner Leg Support, Spider Shoulder Positioner, Other/See Comments Press Points Checked Yes By Forest MUÑOZ, RADHA, Joni Holt RN, Kelly Bull, Vinh Ramos CST, Mleiton Khanna DO, Janusz A Outcomes Met? Yes Last Modified By: Sandra Sheikh RN 09/13/24 13:37:21 Post-Care Text: The patient is free from signs and symptoms of injury related to positioning General Comments: HEAD SECURED TO HEAD REST WTIH FOAM FACE MASK. RIGHT ARM SECURED TO PADDED ARMBOARD AT SIDE, LEFT ARM SECURED TO TRIMANO POSITIONER FOR INTRAOPERATIVE POSITIONING. SALLY SHAH Patient Care Devices FT Pre-Care Text: Implements protective measures to prevent skin/ tissue injury due to thermal or mechanical sources Entry 1 Entry 2 Entry 3 Equipment Type ARTHREX GENERATOR UNIT ARTHREX DUALWAVE INTELLICART SUCTION UNIT IRRIGATION PUMP Equipment Number CART 1 CART 1 CART 1 Equipment Setting Outcomes Met? Yes Yes Yes Last Modified By: Sandra Sheikh RN, RN, Sandra Sheikh RN, Sandra Clayton 09/13/24 13:30:48 09/13/24 13:30:48 09/13/24 13:30:48 Entry 4 Entry 5 Entry 6 Equipment Type MISTRAL FORCED AIR ORTHO ARTHREX ABRADER SHOULDER TABLE WARMING SYSTEM UNIT SYSTEM Equipment Number OB 1 CART 1 Equipment Setting 43 C /HIGH Outcomes Met? Yes Yes Yes Last Modified By: Sandra Sheikh RN, RN, Sandra Sheikh RN, Sandra Clayton 09/13/24 13:30:48 09/13/24 13:30:48 09/13/24 13:30:48 Entry 7 Entry 8 Entry 9 Equipment Type SONOSITE ULTRASOUND UNIT SPIDER/TRIMANO ARM VENA FLOW UNIT Equipment Number Equipment Setting Outcomes Met? Yes Yes Yes Last Modified By: Sandra Sheikh RN, RN, Sandra Sheikh RN, Sandra Clayton 09/13/24 13:30:48 09/13/24 13:30:48 09/13/24 13:30:48 Entry 10 Equipment Type VIDEO SYSTEM Equipment Number OR 5 Equipment Setting Outcomes Met? Yes Last Modified By: Sandra Sheikh RN 09/13/24 13:30:48 Post-Care Text: The patient is free from signs and symptoms of injury caused by extraneous objects Transport To OR FT Pre-Care Text: Transports according to individual needs. Evaluates for signs and symptoms of skin and tissue injury as a result of transfer or transport Entry 1 Via Cart By Sandra Sheikh RN Safety Precautions Side Rails Up Outcomes Met? Yes Last Modified By: Sandra Sheikh RN 09/13/24 13:34:07 Post-Care Text: The patient is free from signs and symptoms of injury related to transfer/transport Cautery FT Pre-Care Text: Implements protective measures to prevent injury due to electrical sources, and evaluates for signs and symptoms of electrical injury Entry 1 ESU Identification ESU Settings ESU Grounding Pad Site Left Thigh Hair Removal Pad No Site Pre Pad Site Clear and Intact Post Pad Site Clear and Intact Condition Condition Grounding Pad Sandra Sheikh RN By Outcomes Met? Yes Last Modified By: Sandra Sheikh RN 09/13/24 13:35:32 Post-Care Text: The patient if free from signs and symptoms of electrical injury General Comments: BOVIE PAD APPLIED, CAUTERY NOT USED. SALLY SHAH Counts Verification FT Pre-Care Text: Performs required counts Entry 1 Entry 2 Procedure(s) SHOULDER ARTHROSCOPY W/ SHOULDER ARTHROSCOPY W/ POSSIBLE REPAIR(Left) POSSIBLE REPAIR(Left) Type Initial Final Items Sponges, Sharps Sponges, Sharps Status Correct Correct Time By Sandra Sheikh RN, Sandra Sheikh RN, William SENIOR TECHNOLOGIST, Mary Thomas SENIOR TECHNOLOGIST, Mary Guzman Outcomes Met? Yes Yes Last Modified By: Sandra Sheikh RN, RN, Amy J 09/13/24 13:37:08 09/13/24 14:17:42 Post-Care Text: The patient is free from signs and symptoms of injury caused by extraneous objects Skin Prep FT Pre-Care Text: Performs skin preparations Entry 1 Procedure SHOULDER ARTHROSCOPY W/ Prep Area LEFT SHOULDER, LEFT ARM POSSIBLE REPAIR(Left) TO WRIST Prep Agents Chloraprep/Dry Prior to Start Dry Time 09/13/24 12:46:00 Draping, Alcohol/Dry Prior to Draping Stop Dry Time 09/13/24 12:49:00 Hair Removal Methods Not Indicated By Sandra Sheikh RN Outcomes Met? Yes Last Modified By: Sandra Sheikh RN 09/13/24 13:50:01 Post-Care Text: The patient is free from signs and symptoms of infection General Comments: LEFT SHOULDER, LEFT ARM WIPED WITH ALCOHOL BY MIRYAM MACIEL RN PRIOR TO CHLORAPREP APPLICATION. SALLY SHAH Departure From OR FT Pre-Care Text: Transports according to individual needs. Evaluates for signs and symptoms of skin and tissue injury as a result of transfer or transport. Entry 1 Via Cart Safety Precautions Side Rails Up PostOp Destination PACU Transported By Sandra Sheikh RN Patient Status Stable Skin. Condition Intact, [employer], Warm, & Dry Airway Maintenance Oxygen in Use? Yes Airway Device Simple Mask Flow Rate 8 L Outcomes Met? Yes Last Modified By: Sandra Sheikh RN 09/13/24 13:50:34 Post-Care Text: The patient is free from signs and symptoms of injury related to transfer/transport General Comments: HANDOFF REPORT GIVEN TO PACU NURSE. SALLY SHAH Dressing/Packing FT Pre-Care Text: Administers care to wound sites Entry 1 Entry 2 Type Dressing Immobilization Devices Items DRESSING ADAPTIC 3 X 8 Site and Details BACITRACIN, ADAPTIC, ULTRASLING TO LEFT ARM GAUZE, OPSITE TO LEFT SHOULDER Outcomes Met? Yes Yes Last Modified By: Sandra Sheikh RN, RN, Amy J 09/13/24 13:51:10 09/13/24 13:51:10 Post-Care Text: The patient is free from signs and symptoms of infection Medication Administration FT Pre-Care Text: Verifies allergies, administers prescribed medications and solutions, administers prescribed antibiotic therapy and immunizing agents as ordered, evaluates response to medications Administers prescribed medications and solutions Entry 1 Route of Admin Field Expiration Date Yes Verified Ordered By Janusz Coelho DO Transcribed/To Sandra Sheikh RN Field By Administered By Janusz Coelho DO Outcomes Met? Yes Last Modified By: Sandra Sheikh RN 09/13/24 13:34:01 Post-Care Text: The patient received appropriate medication(s) safely administered during the perioperative period For [place] please see scanned medication reconcilliation form for medications used at the field during the procedure. Implant Log FT Pre-Care Text: Records devices implanted during the operative or invasive procedure Entry 1 Entry 2 Entry 3 Procedure SHOULDER ARTHROSCOPY W/ SHOULDER ARTHROSCOPY W/ SHOULDER ARTHROSCOPY W/ POSSIBLE REPAIR(Left) POSSIBLE REPAIR(Left) POSSIBLE REPAIR(Left) Implant/Explant Implant Implant Implant Implant Identification FT Description KNOTLESS FIBERTAK KNOTLESS FIBERTAK BIOCOMPOSITE SHORT PUSHLOCKS Serial Number Lot Number [id number] Load Number Voucher Examiner Arthrex Arthrex ARTHREX Catalog ???# [id number]-[id number] Size Expiration Date 05/06/29 04/06/29 06/06/26 Manufactured Date Materials Unique Device [id number] Identifier (MARI) Human Readable {[id number] {[id number] Barcode Machine Readable [id number] Barcode Usage Data FT Implant Site Shoulder L Shoulder R Shoulder L Implant Site Comment Quantity 5 1 1 Implant/Explant Date Implanted By Janusz Coelho DO, DO, Jason A Brown DO, Jason A Explant Reason Biological Implants Biological Source Donor Number MR Classification MR Safe MR Safe Temperature Reconstitution Method Outcomes Met? Yes Yes Yes Voucher Examiner Model Number Last Modified By: Sandra Sheikh RN, RN, Sandra Avendaño RN 09/13/24 13:58:19 09/13/24 13:37:08 09/13/24 13:48:39 Post-Care Text: The patient is free from signs and symptoms of injury caused by extraneous objects Temperature Control Entry 1 Temperature Control BLANKET MISTRAL AIR Quantity 1 Aid PLUS LOWER BODY Fluid/Whitney Unit Mistral warming system Setting 43 C /HIGH Body Site Lower anterior torso Last Modified By: Sandra Sheikh RN 09/13/24 13:36:10 Sign Out FT Entry 1 Before Patient Leaves OR Nurse verbally Yes Nurse verbally Yes confirms with the confirms with the team the name of team that the procedure(s) instrument, sponge, recorded and needle counts are correct (or N/A) Nurse verbally n/a Nurse verbally n/a confirms with the confirms with the team how the team whether there specimen is labeled are any equipment (including patient problems to be name), if applicable addressed Sign Out Complete 09/13/24 14:14:00 Last Modified By: Sandra Sheikh RN 09/13/24 14:17:53 Case Comments <None> Finalized By: Ila Perkins CST Document Signatures Signed By: Sandra Sheikh RN 09/13/24 14:52 Ila Perkins CST 09/16/24 12:14Ila Perkins CST 09/16/24 12:14 MAIN OR PACU I RECORD Observed: 09/13/19 12:58 PM Status: F Source: [facility] Main OR PACU I Record PACU Phase I Document Type FT Summary Primary Physician: Janusz Coelho DO Finalized Date/Time: 09/13/24 15:26:48 Pt. Name: ASIA SHELL/Sex: 1975 Male Med Rec #: [id number] Physician: Janusz Coelho DO Financial #: [id number] Pt. Type: A Room/Bed: [facility] Admit/Disch: 09/13/24 08:53:31 - Institution: Case Times PACU I FT Pre-Care Text: Identifies barriers to communication and implements measures to provide psychological support Develops individualized plan of care, and ensures continuity of care Maintains patient's dignity and privacy, and maintains patient confidentiality Identifies and reports philosophical, cultural, and spiritual beliefs and values Identifies individual values and wishes concerning care Implements aseptic technique, and administers prescribed antibiotic therapy and immunizing agents as ordered Evaluates postoperative tissue perfusion Implements thermoregulation measures, and monitors body temperature Evaluates postoperative respiratory status Evaluates postoperative cardiac status Evaluates postoperative neurological status Assesses pain control, collaborated in initiating patient-controlled analgesia and implements alternative methods of pain control Verifies allergies, administers prescribed medications and solutions, evaluates response to medications Entry 1 In PACU I 09/13/24 14:29:00 Discharge from PACU 09/13/24 15:00:00 I Outcomes Met? Yes Last Modified By: Windy Morales RN 09/13/24 15:26:31 Post-Care Text: The patient demonstrates knowledge of the expected response to the operative or invasive procedure The patient's care is consistent with the individualized perioperative plan of care The patient's right to privacy is maintained The patient's value system, lifestyle, ethnicity, and culture are considered, respected, and incorporated into the perioperative plan of care The patient participates in decisions affecting his or her perioperative plan of care The patient is free from signs and symptoms of infection The patient has wound/tissue perfusion consistent with or improved from baseline levels established preoperatively The patient is at or returning to normothermia at the conclusion of the immediate postoperative period The patient's respiratory function is consistent with or improved from baseline levels established preoperatively The patient's cardiovascular status is consistent with or improved from baseline levels established preoperatively The patient's cardiovascular status is consistent with or improved from baseline levels established preoperatively The patient demonstrates and/or reports adequate pain control throughout the perioperative period The patient received appropriate medication(s), safely administered during the perioperative period Acuity Level PACU I FT Entry 1 Start Time 09/13/24 14:29:00 Stop Time 09/13/24 15:00:00 Acuity Level Acuity Level I Last Modified By: Windy Morales RN 09/13/24 15:26:44 Finalized By: Windy Morales RN Document Signatures Signed By: Windy Morales RN 09/13/24 15:26 OUTPATIENT SURGERY DISCHARGE INSTRUCTION Observed: 09/13/2024 12:34 PM Status: F Source: [facility] Outpatient Surgery Discharge Instruction [place] [id number] Patient Discharge Instructions PERSON INFORMATION Name: ASIA SHELL Date of : 1975 Current Date: 09/13/2024 12:34:52 PHYSICIANS Admitting Physician: Janusz Coelho DO Discharge Diagnosis: ASIA SHELL has been given the following list of follow-up instructions, prescriptions, and patient education materials: IF UNABLE TO CONTACT YOUR PHYSICIAN AND YOU FEEL IT IS AN EMERGENCY, GO TO THE NEAREST EMERGENCY ROOM OR CALL 911 SUMAYA Gao ERIC A, have received the attached patient education materials/instructions and have verbalized understanding: May we do a follow up call? Yes No I was present when discharge instructions were given Patient Signature Date Clinican/Nurse Signature Date Follow up: Type Location Start [facility] Preventative Visit [facility] 10/30/2024 11:00 AM 10/30/2024 11:20 AM Confirmed Pharmacy Information: You may receive a survey from [employer] asking you to rate your care experience. Your feedback is important and will help us understand what we do well and how we can improve the quality of care we provide to you, your loved ones and our community. It???s an honor to serve you. Thank you for choosing [facility] HERE ARE THE MEDICATION CHANGES THAT OCCURRED DURING YOUR HOSPITAL STAY Medications to Continue with No Changes Other Medications amlodipine (amLODIPine 5 mg Tab) 1 Tablets By Mouth every day. Refills: 0. Misc Prescription (CPAP supplies) Uses nightly with his CPAP. Refills: 1. PATIENT EDUCATION INFORMATION Instructions: [place], [place] [facility] AFTER YOUR SHOULDER ARTHROSCOPY 1. Diet: Begin with a liquid diet and advance to your normal diet as tolerated. 2. Activity: You may remove your sling for bathing and to perform gentle range of motion exercises for the hand, wrist, and elbow. Bend and straighten your elbow and wrist several times per day to minimize stiffness. Keep your elbow in close to your side when performing these exercises. Do not move your shoulder until instructed by your surgeon. Swelling after surgery is normal and this will gradually decrease over time. All sports activities are discouraged, at least until your first post-operative visit at which time we will discuss how and when to resume sports. 3. Driving: Driving is legal. If you are involved in an accident, you must be able to prove that you maintained full control of your vehicle. For this reason, it is advised that you do not drive until your strength returns. You should not operate a vehicle or heavy machinery if you are taking narcotic pain medication. 4. Pain: If pain persists despite rest, elevation, and medication, contact your surgeon. You will be given a prescription for pain medications prior to leaving the hospital. Please inform us of any known drug allergy. If you have any problems with the medication, it should be discontinued and our office notified. The sensation of splashing of fluid inside the joint is not cause for concern. It represents residual fluids from surgery and they will be absorbed. Elevation of the arm and application of an ice pack will minimize swelling and discomfort in the first 48 hours after surgery. 5. Bandage: Soft compression dressing has been applied to your shoulder. This dressing should be comfortable and absorb any leakage of fluid or blood from your operated shoulder. Although the dressing may become moist or blood stained, this is not usually a cause for concern. If this persists, notify your surgeon. You may remove the dressing 48 hours after your surgery. If you have a bandage in your armpit, leave this in place until follow up. Apply betadine and band-aids to the small incisions once or twice daily as needed. 6. Incisions: The portals of entry may be sore and develop bruising over the next several days. The bruising eventually resolves and does not require any special care. Do not apply creams or lotions to your shoulder. Your portals will heal well on their own. 7. Bathing: You may shower 48 hours after surgery. Bathing or soaking in water should be avoided until your first post-operative visit. 8. Precautions: If you develop fever (101 degrees or above), increasing pain (not relieved by rest, elevation, ice, and medication as prescribed), redness or swelling in your shoulder or arm, please contact the office or the hospital. If you notice increased drainage from the operative portals after the third day, this should also be reported. 9. Return Visit: Your first post-operative follow-up appointment is generally between 7 and 14 days after discharge from the hospital. You will be given an appointment card with your appointment information. Do not hesitate to call the office or the hospital if any problems or questions arise before your appointment. Janusz Coelho DO [facility] [address], [place] [address] Reviewed: Medication Leaflets: INPATIENT PATIENT SUMMARY Observed: 02/2025 12:34 PM Status: F Source: [facility] Inpatient Patient Summary [address] [address] [facility] Clinical Discharge Instructions PERSON INFORMATION Name: ASIA SHELL [facility]#:[id number] PHYSICIANS Admitting Physician: Janusz Coelho DO Attending Physician: Janusz Coelho DO PCP: Dmitri RAGLAND MD Discharge Diagnosis: Comment: PATIENT EDUCATION INFORMATION Instructions: Philip Coelho - After Your Shoulder Arthroscopy (Custom) Medication Leaflets: Follow up: Type Location Start [facility] Preventative Visit [facility] 10/30/2024 11:00 AM 10/30/2024 11:20 AM Confirmed MEDICATION LIST Medications to Continue with No Changes Other Medications amlodipine (amLODIPine 5 mg Tab) 1 Tablets By Mouth every day. Refills: 0. Misc Prescription (CPAP supplies) Uses nightly with his CPAP. Refills: 1. Comment: PROGRESS NOTE-PHYSICIAN Observed: 2024 11:07 AM Status: F Source: [facility] Progress Note-Physician Patient: ASIA SHELL Age: 49 years Sex: Male : 1975 Associated Diagnoses: None Author: Nigel SINGLETON, Barrett Ram Preoperative Information Anesthesia Preop Info: Time patient last ate or drank 09/13/2024 00:00:00. Anesthesia history: Patient history: None. Family history+: None. Informed consent: Signed by patient. Re-evaluation prior to induction: Initial evaluation reviewed: No significant change. Review of Systems Eye Ear/Nose/Mouth/Throat Respiratory: No shortness of breath, No cough. Cardiovascular: Negative. Musculoskeletal Neurologic Health Status Allergies: Allergic Reactions (Selected) Severity Not Documented Penicillin- Unknown., Allergies (1) Active Severity Reaction penicillin Unknown Current medications: (Selected) Inpatient Medications Ordered Sodium Chloride 0.9% IV Nidia 1000 mL 1,000 mL: 1,000 mL, IV, 150 mL/hr, Routine, Start date 09/13/24 9:00:00 EST, 6.7 hour(s), Total volume (mL): 1,000, 135.4 kg, 2.6, m2 cefazolin additive + Sodium Chloride 0.9% intravenous solution 100 mL: 3 gram = 1 EA, Injection, IV Piggyback, PREOP, Routine, Start date 09/13/24 9:00:00 EST, 200 mL/hr, Infuse over 30 minute(s) tranexamic acid additive + premix generic diluent 100 mL: 1,000 mg = 100 mL, Soln-IV, IV Piggyback, Once, Stop date 09/13/24 9:00:00 EST, Routine, Start date 09/13/24 9:00:00 EST, 200 mL/hr, Infuse over 30 minute(s) Prescriptions Prescribed CPAP supplies: CPAP supplies, See Instructions, 1 EA, 1, Uses nightly with his CPAP, Supply amLODIPine 5 mg Tab: 5 mg = 1 tab(s), Oral, Daily, # 90 tab(s), Refills(s) 0, Pharmacy: [facility]/pharmacy #[id number], 180, cm, 08/30/24 9:53:00 EST, Height/Length Dosing, 134.1, kg, 08/30/24 9:53:00 EST, Weight Dosing, Home Medications (2) Active amLODIPine 5 mg Tab 5 mg = 1 tab(s), Oral, Daily CPAP supplies See Instructions , Medications (3) Active Scheduled: (2) ceFAZolin + Sodium Chloride 0.9% Minibag 100 mL 3 gram 1 EA, IV Piggyback, PREOP tranexamic acid + Generic Diluent 100 mL 1,000 mg 100 mL, IV Piggyback, Once Continuous: (1) Sodium Chloride 0.9% 1,000 mL 1,000 mL, IV, 150 mL/hr PRN: (0) Problem list: All Problems Chronic sinusitis / SNOMED CT 99293087 / Confirmed Cigarette smoker / SNOMED CT 847238847 / Confirmed Family history of early CAD / SNOMED CT 194078879 / Confirmed Fasting hyperglycemia / SNOMED CT 164201756 / Confirmed Hearing loss in left ear / SNOMED CT 0081020183 / Confirmed Hyperlipidemia, mixed / SNOMED CT 369972491 / Confirmed Hypertension / SNOMED CT 1712266297 / Confirmed IBS (irritable bowel syndrome) / SNOMED CT 16896640 / Confirmed Insomnia / SNOMED CT 355159922 / Confirmed Left knee pain / SNOMED CT 9840387556 / Confirmed Left rotator cuff tear / SNOMED CT 3305798 / Confirmed Obstructive sleep apnea / SNOMED CT 528262164 / Confirmed Preop examination / SNOMED CT 050481953 / Confirmed Preventative health care / SNOMED CT 391864700 / Confirmed Shift work sleep disorder / SNOMED CT 8667737839 / Confirmed SLAP tear of shoulder / SNOMED CT 1545828879 / Confirmed left Tubular adenoma of colon / SNOMED CT 992932557 / Confirmed Canceled: BMI 40.0-44.9, adult / SNOMED CT 5234290083 Canceled: Left shoulder strain / SNOMED CT 766376972 Canceled: Screen for colon cancer / SNOMED CT 167299298 Canceled: Screening for malignant neoplasm of colon / SNOMED CT [id number] Canceled: Sinusitis, acute / SNOMED CT [id number] Canceled: Tobacco use / SNOMED CT [id number] Canceled: Wrist contusion / SNOMED CT [id number], Active Problems (17) Chronic sinusitis Cigarette smoker Family history of early CAD Fasting hyperglycemia Hearing loss in left ear Hyperlipidemia, mixed Hypertension IBS (irritable bowel syndrome) Insomnia Left knee pain Left rotator cuff tear Obstructive sleep apnea Preop examination Preventative health care Shift work sleep disorder SLAP tear of shoulder Tubular adenoma of colon Histories Past Medical History: No active or resolved past medical history items have been selected or recorded. Family History: Primary malignant neoplasm of prostate Father Acute myocardial infarction Mother Alive Mother Father Procedure history: Colonoscopy ([id number]) on 09/29/2021 at 46 Years. Arthroscopy of shoulder ([id number]) on 03/06/2020 at 44 Years. right wrist fusion. Excision of lipoma ([id number]). 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 Physical Examination Vital Signs 09/13/2024 9:17 EST Heart Rate Monitored 75 bpm Systolic Blood Pressure 129 mmHg Diastolic Blood Pressure 84 mmHg Blood Pressure Location Left arm Mean Arterial Pressure, Monitered 99 mmHg 09/13/2024 9:14 EST Heart Rate Monitored 68 bpm SpO2 96 % 09/13/2024 9:13 EST Respiratory Rate 16 br/min 09/13/2024 9:13 EST Systolic Blood Pressure 121 mmHg Diastolic Blood Pressure 83 mmHg Blood Pressure Location Right arm Mean Arterial Pressure, Monitered 95 mmHg 09/13/2024 9:12 EST Temperature Axillary 36.9 DegC HI Vital Signs (last 24 hrs) Last Charted Temp Axillary H 36.9 DegC (SEP 13 09:12) Heart Rate Monitored 75 bpm (SEP 13 09:17) SBP 129 mmHg (SEP 13 09:17) DBP 84 mmHg (SEP 13 09:17) Measurements from flowsheet : Measurements 09/13/2024 9:31 EST Height/Length Measured 178 cm Weight Measured 134 kg Airway: Mallampati classification: II (soft palate, fauces, uvula visible). Respiratory: Lungs are clear to auscultation, Respirations are non-labored, adequate air exchange. Cardiovascular: Regular rhythm, No murmur. Review / Management Results review: No qualifying data available . Plan [place] [employer]esthesi[employer] (ASA) physical status classification: Class III. Anesthetic Preoperative Plan: Anesthesia General. Regional Interscalene block. Result Comment: Electronical ly Signed By: Nigel SINGLETON, Barrett Ram\.br\Date and Time Signed: 09/27/24 13:28 EST AMBULATORY VISIT SUMMARY Observed: 09/05 2:30 PM Status: F Source: [facility] Ambulatory Visit Summary ASIA SHELL :1975 Visit Date:09/05/2024 Ambulatory Visit Instructions Your Diagnosis Hypertension Adult BMI 40.0-44.9 kg/sq m Morbid obesity with BMI of 40.0-44.9, adult Cigarette smoker Your Care Team Attending Physician - Dmitri RAGLAND MD Primary Care Physician - Dmitri RAGLAND MD This Is Your Medications List Contact prescribing physician if questions or concerns Misc Prescription (CPAP supplies) amlodipine (amLODIPine 5 mg Tab) Procedures Performed Colonoscopy (09/29/2021), Arthroscopy of shoulder (03/06/2020), Excision of lipoma, right wrist fusion. Discharge Vitals Heart Rate (Peripheral) 81 Blood Pressure 130/82 Height 180 cm Height 71 in Weight 135.4 kg Weight 298.506 lb BMI 41.79 What to do next Scheduled Follow-Up Appointments Monday 12:00 PM EST With: Where: [facility] Surgical Services Monday 11:00 AM EDT With: Dmitri RAGLAND MD Where: [facility] [address] [place] [address]- You Need to Schedule the Following Appointments Follow Up with Dmitri RAGLAND MD, MED When: Comments: at regular appt but sooner if needed. Where: [facility] [address], [place] [address]- Medications What How Much When Why Instructions Unchanged amlodipine (amLODIPine 5 mg Tab) 1 Tablets By Mouth Every day Hypertension Contact prescribing physician if questions or concerns Unchanged Misc Prescription (CPAP supplies) See instructions Obstructive sleep apnea Uses nightly with his CPAP Contact prescribing physician if questions or concerns Allergies penicillin (Unknown) Problems Ongoing - Any problem that you are currently receiving treatment for. Chronic sinusitis Family history of early CAD Fasting hyperglycemia Hearing loss in left ear Hyperlipidemia, mixed Hypertension IBS (irritable bowel syndrome) Insomnia Left knee pain Left rotator cuff tear Obstructive sleep apnea Preop examination Preventative health care Shift work sleep disorder Tubular adenoma of colon Patient Survey You may receive a survey via text or e-mail asking about your office visit. Please share your experience with us by completing your survey. We appreciate your feedback and thank you for choosing us for your care. Education Materials Hypertension, Adult Hypertension is another name for high blood pressure. High blood pressure forces your heart to work harder to pump blood. This can cause problems over time. There are two numbers in a blood pressure reading. There is a top number (systolic) over a bottom number (diastolic). It is best to have a blood pressure that is below 120/80. What are the causes? The cause of this condition is not known. Some other conditions can lead to high blood pressure. What increases the risk? Some lifestyle factors can make you more likely to develop high blood pressure: ??? Smoking. ??? Not getting enough exercise or physical activity. ??? Being overweight. ??? Having too much fat, sugar, calories, or salt (sodium) in your diet. ??? Drinking too much alcohol. Other risk factors include: ??? Having any of these conditions: ? Heart disease. ? Diabetes. ? High cholesterol. ? Kidney disease. ? Obstructive sleep apnea. ??? Having a family history of high blood pressure and high cholesterol. ??? Age. The risk increases with age. ??? Stress. What are the signs or symptoms? High blood pressure may not cause symptoms. Very high blood pressure (hypertensive crisis) may cause: ??? Headache. ??? Fast or uneven heartbeats (palpitations). ??? Shortness of breath. ??? Nosebleed. ??? Vomiting or feeling like you may vomit (nauseous). ??? Changes in how you see. ??? Very bad chest pain. ??? Feeling dizzy. ??? Seizures. How is this treated? This condition is treated by making healthy lifestyle changes, such as: ? Eating healthy foods. ? Exercising more. ? Drinking less alcohol. ??? Your doctor may prescribe medicine if lifestyle changes do not help enough and if: ? Your top number is above 130. ? Your bottom number is above 80. ??? Your personal target blood pressure may vary. Follow these instructions at home: Eating and drinking ??? If told, follow the DASH eating plan. To follow this plan: ? Fill one half of your plate at each meal with fruits and vegetables. ? Fill one fourth of your plate at each meal with whole grains. Whole grains include whole-wheat pasta, brown rice, and whole-grain bread. ? Eat or drink low-fat dairy products, such as skim milk or low-fat yogurt. ? Fill one fourth of your plate at each meal with low-fat (lean) proteins. Low-fat proteins include fish, chicken without skin, eggs, beans, and tofu. ? Avoid fatty meat, cured and processed meat, or chicken with skin. ? Avoid pre-made or processed food. ??? Limit the amount of salt in your diet to less than 1,500 mg each day. ??? Do not drink alcohol if: ? Your doctor tells you not to drink. ? You are , may be , or are planning to become . ??? If you drink alcohol: ? Limit how much you have to: ? 0???1 drink a day for women. ? 0???2 drinks a day for men. ? Know how much alcohol is in your drink. In the [place] one drink equals one 12 oz bottle of beer (355 mL), one 5 oz glass of wine (148 mL), or one 1??? oz glass of hard liquor (44 mL). Lifestyle ??? Work with your doctor to stay at a healthy weight or to lose weight. Ask your doctor what the best weight is for you. ??? Get at least 30 minutes of exercise that causes your heart to beat faster (aerobic exercise) most days of the week. This may include walking, swimming, or biking. ??? Get at least 30 minutes of exercise that strengthens your muscles (resistance exercise) at least 3 days a week. This may include lifting weights or doing Pilates. ??? Do not smoke or use any products that contain nicotine or tobacco. If you need help quitting, ask your doctor. ??? Check your blood pressure at home as told by your doctor. ??? Keep all follow-up visits. Medicines ??? Take ltvg-hiz-dedbqqe and prescription medicines only as told by your doctor. Follow directions carefully. ??? Do not skip doses of blood pressure medicine. The medicine does not work as well if you skip doses. Skipping doses also puts you at risk for problems. ??? Ask your doctor about side effects or reactions to medicines that you should watch for. Contact a doctor if: ??? You think you are having a reaction to the medicine you are taking. ??? You have headaches that keep coming back. ??? You feel dizzy. ??? You have swelling in your ankles. ??? You have trouble with your vision. Get help right away if: ??? You get a very bad headache. ??? You start to feel mixed up (confused). ??? You feel weak or numb. ??? You feel faint. ??? You have very bad pain in your: ? Chest. ? Belly (abdomen). ??? You vomit more than once. ??? You have trouble breathing. These symptoms may be an emergency. Get help right away. Call 911. ??? Do not wait to see if the symptoms will go away. ??? Do not drive yourself to the hospital. Summary ??? Hypertension is another name for high blood pressure. ??? High blood pressure forces your heart to work harder to pump blood. ??? For most people, a normal blood pressure is less than 120/80. ??? Making healthy choices can help lower blood pressure. If your blood pressure does not get lower with healthy choices, you may need to take medicine. This information is not intended to replace advice given to you by your health care provider. Make sure you discuss any questions you have with your health care provider. Document Revised: 05/12/2022 Document Reviewed: 05/12/2022 [employer] Patient Education ??? 2023 [employer]. FAMILY MEDICINE OFFICE/CLINI C NOTE Observed: 09/05/2024 2:28 PM Status: F Source: [facility] Family Medicine Office/Clini c Note Chief Complaint Patient here for 1 week f/u on bp. Had accupuncture & hasn't smoked in 48 hrs. HPI Staff Last colonoscopy 09-29-2021 History of Present Illness Here for htn follow up We started him on amlodipine last week. He is tolerating it well. NO CP or SOB. He also had acupuncture to help quit smoking and so far it is working. He has not smoked for 2 days and he does not have cravings for one. Review of Systems PHQ Score Initial Depression Screen Score: 0 SCORE Physical Exam Vitals & Measurements HR: 81(Peripheral) BP: 130/82 SpO2: 95% HT: 71 in HT: 180 cm WT: 135.4 kg WT: 298.506 lb BMI: 41.79 General: Well developed, well nourished, in no acute distress Eyes: Pupils equal, round, and reactive to light. Conjunctivae and sclerae normal, and extraocular movements intact Ears: not assessed Nose: not addressed Mouth: not assessed Neck: _no bruit Lungs: Normal respiratory effort and clear to auscultation Cardio: Regular rate and rhythm, normal S1 and S2, no murmur, no rub Abdomen: Soft, non-distended, non-tender Musculoskeletal: not assessed Extremity: No clubbing, cyanosis or edema. Neurologic: Grossly normal Skin: No rashes, ulcerations, or suspicious lesions Mental Status: Alert and oriented x3. Normal mood and affect Assessment/Plan 1. Hypertension (I10: Essential (primary) hypertension) stay on amlodipine 2. Adult BMI 40.0-44.9 kg/sq m (Z68.41: Body mass index [BMI] 40.0-44.9, adult) The standard range for ages 18 and older is >=18.5 and < 25 kg/m2. Your BMI today was above this range, this falls in the overweight to obese category and there are medical benefits to weight loss. We can offer counselling, referral, and/or medical support in addressing this problem. Your BMI and weight management will be followed at subsequent visits. 3. Morbid obesity with BMI of 40.0-44.9, adult (E66.01: Morbid (severe) obesity due to excess calories) 4. Cigarette smoker (F17.210: Nicotine dependence, cigarettes, uncomplicated) He quit 2 days ago. Follow-up With When Contact Information ELLYN SINGLETON, Dmitri Green, [facility] [address] [place] [address]- Additional Instructions: at regular appt but sooner if needed. Patient Education Hypertension, Adult, Ndcg-ak-Sfkf Problem List/Past Medical History Ongoing Chronic sinusitis Family history of early CAD Fasting hyperglycemia Hearing loss in left ear Hyperlipidemia, mixed Hypertension IBS (irritable bowel syndrome) Insomnia Left knee pain Left rotator cuff tear Obstructive sleep apnea Preop examination Preventative health care Shift work sleep disorder Tubular adenoma of colon Historical No qualifying data Procedure/Surgical History Colonoscopy (09/29/2021), Arthroscopy of shoulder (03/06/2020), Excision of lipoma, right wrist fusion. Medications amLODIPine 5 mg Tab, 5 mg= 1 tab(s), Oral, Daily CPAP supplies, See Instructions, 1 refills Allergies penicillin (Unknown) Social History Alcohol - Denies Alcohol Use, 02/27/2020 Current. Beer. 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 Cigarettes, Yes, 09/05/2024 Family History Acute myocardial infarction: Mother. Alive: Mother and Father. Primary malignant neoplasm of prostate: Father. Immunizations Vaccine Date Status Comments influenza virus vaccine, inactivated - Not Given Patient Refusesinfluenza virus vaccine, inactivated - Not Given Patient Refusesinfluenza virus vaccine, inactivated - Not Given Patient [id number] (COVID-19) mRNA BNT-162b2 vax 09/01/2021 Recorded influenza virus vaccine, inactivated - Not Given Postpone due to refusal SARS-CoV-2 (COVID-19) mRNA BNT-162b2 vax 11/24/2020 [facility]ed [facility] SARS-CoV-2 (COVID-19) mRNA BNT-162b2 vax 11/03/2020 [facility]ed [facility] influenza virus vaccine, inactivated - Not Given Patient Refuses Result Comment: Electronical ly Signed By: ELLYN SINGLETON, Dmitri Alexanderbr\Date and Time Signed: 09/05/24 14:28 EST PATIENT EDUCATION Observed: 09/05/2024 2:25 PM Status: F Source: [facility] Patient Education Cardiovascular Hypertension, Adult Hypertension is another name for high blood pressure. High blood pressure forces your heart to work harder to pump blood. This can cause problems over time. There are two numbers in a blood pressure reading. There is a top number (systolic) over a bottom number (diastolic). It is best to have a blood pressure that is below 120/80. What are the causes? The cause of this condition is not known. Some other conditions can lead to high blood pressure. What increases the risk? Some lifestyle factors can make you more likely to develop high blood pressure: ??? Smoking. ??? Not getting enough exercise or physical activity. ??? Being overweight. ??? Having too much fat, sugar, calories, or salt (sodium) in your diet. ??? Drinking too much alcohol. Other risk factors include: ??? Having any of these conditions: ? Heart disease. ? Diabetes. ? High cholesterol. ? Kidney disease. ? Obstructive sleep apnea. ??? Having a family history of high blood pressure and high cholesterol. ??? Age. The risk increases with age. ??? Stress. What are the signs or symptoms? High blood pressure may not cause symptoms. Very high blood pressure (hypertensive crisis) may cause: ??? Headache. ??? Fast or uneven heartbeats (palpitations). ??? Shortness of breath. ??? Nosebleed. ??? Vomiting or feeling like you may vomit (nauseous). ??? Changes in how you see. ??? Very bad chest pain. ??? Feeling dizzy. ??? Seizures. How is this treated? This condition is treated by making healthy lifestyle changes, such as: ? Eating healthy foods. ? Exercising more. ? Drinking less alcohol. ??? Your doctor may prescribe medicine if lifestyle changes do not help enough and if: ? Your top number is above 130. ? Your bottom number is above 80. ??? Your personal target blood pressure may vary. Follow these instructions at home: Eating and drinking ??? If told, follow the DASH eating plan. To follow this plan: ? Fill one half of your plate at each meal with fruits and vegetables. ? Fill one fourth of your plate at each meal with whole grains. Whole grains include whole-wheat pasta, brown rice, and whole-grain bread. ? Eat or drink low-fat dairy products, such as skim milk or low-fat yogurt. ? Fill one fourth of your plate at each meal with low-fat (lean) proteins. Low- fat proteins include fish, chicken without skin, eggs, beans, and tofu. ? Avoid fatty meat, cured and processed meat, or chicken with skin. ? Avoid pre-made or processed food. ??? Limit the amount of salt in your diet to less than 1,500 mg each day. ??? Do not drink alcohol if: ? Your doctor tells you not to drink. ? You are , may be , or are planning to become . ??? If you drink alcohol: ? Limit how much you have to: ? 0?1 drink a day for women. ? 0?2 drinks a day for men. ? Know how much alcohol is in your drink. In the [place] one drink equals one 12 oz bottle of beer (355 mL), one 5 oz glass of wine (148 mL), or one 1? oz glass of hard liquor (44 mL). Lifestyle ??? Work with your doctor to stay at a healthy weight or to lose weight. Ask your doctor what the best weight is for you. ??? Get at least 30 minutes of exercise that causes your heart to beat faster (aerobic exercise) most days of the week. This may include walking, swimming, or biking. ??? Get at least 30 minutes of exercise that strengthens your muscles (resistance exercise) at least 3 days a week. This may include lifting weights or doing Pilates. ??? Do not smoke or use any products that contain nicotine or tobacco. If you need help quitting, ask your doctor. ??? Check your blood pressure at home as told by your doctor. ??? Keep all follow-up visits. Medicines ??? Take khpt-ccs-bwjiiub and prescription medicines only as told by your doctor. Follow directions carefully. ??? Do not skip doses of blood pressure medicine. The medicine does not work as well if you skip doses. Skipping doses also puts you at risk for problems. ??? Ask your doctor about side effects or reactions to medicines that you should watch for. Contact a doctor if: ??? You think you are having a reaction to the medicine you are taking. ??? You have headaches that keep coming back. ??? You feel dizzy. ??? You have swelling in your ankles. ??? You have trouble with your vision. Get help right away if: ??? You get a very bad headache. ??? You start to feel mixed up (confused). ??? You feel weak or numb. ??? You feel faint. ??? You have very bad pain in your: ? Chest. ? Belly (abdomen). ??? You vomit more than once. ??? You have trouble breathing. These symptoms may be an emergency. Get help right away. Call 911. ??? Do not wait to see if the symptoms will go away. ??? Do not drive yourself to the hospital. Summary ??? Hypertension is another name for high blood pressure. ??? High blood pressure forces your heart to work harder to pump blood. ??? For most people, a normal blood pressure is less than 120/80. ??? Making healthy choices can help lower blood pressure. If your blood pressure does not get lower with healthy choices, you may need to take medicine. This information is not intended to replace advice given to you by your health care provider. Make sure you discuss any questions you have with your health care provider. Document Revised: 05/12/2022 Document Reviewed: 05/12/2022 [employer] Patient Education ? 2023 [employer]. AMBULATORY VISIT SUMMARY Observed: 08/30 10:19 AM Status: F Source: [facility] Ambulatory Visit Summary ASIA SHELL :1975 Visit Date:08/30/2024 Ambulatory Visit Instructions Your Diagnosis Preop examination SLAP tear of shoulder Hypertension Cigarette smoker Hyperlipidemia, mixed Insomnia Fasting hyperglycemia Obstructive sleep apnea Preventative health care Your Care Team Attending Physician - Dmitri RAGLAND MD Primary Care Physician - Dmitri RAGLAND MD This Is Your Medications List amlodipine (amLODIPine 5 mg Tab) Contact prescribing physician if questions or concerns Misc Prescription (CPAP supplies) Procedures Performed Colonoscopy (09/29/2021), Arthroscopy of shoulder (03/06/2020), Excision of lipoma, right wrist fusion. Discharge Vitals Temperature (Oral) 36.7 ???C Heart Rate (Peripheral) 71 Blood Pressure 140/90 Height 71 in Height 180 cm Weight 295.64 lb Weight 134.1 kg BMI 41.39 What to do next Scheduled Follow-Up Appointments 2024 2:00 PM EST With: Dmitri RAGLAND MD Where: [facility] [address] [place] [address]- Monday 12:00 PM EST With: Where: [facility] Services Monday 11:00 AM EDT With: Dmitri RAGLAND MD Where: [facility] [address] [place] [address]- You Need to Schedule the Following Appointments Follow Up with Dmitri RAGLAND MD, MED When: In 1 week Where: [facility] [address] [place] [address]- Follow Up with Dmitri RAGLAND MD, MED When: Comments: at regular appt but sooner if needed. Where: [facility] [address], [facility] [address]- You Need to Complete the Following CBC w/ Auto Diff, Blood, Routine collect, 08/30/24, Order for future visit, Lab Collect, Preventative health care, Print Label By Order Location Comprehensive Metabolic Panel, Blood, Routine collect, 08/30/24, Order for future visit, Lab Collect, Preventative health care, Print Label By Order Location HgbA1c, Blood, Routine collect, 08/30/24, Order for future visit, Lab Collect, Preventative health care, Print Label By Order Location Lipid Panel, Blood, Routine collect, 08/30/24, Order for future visit, Lab Collect, Preventative health care, Print Label By Order Location PSA Screen, Total, Blood, Routine collect, 08/30/24, Order for future visit, Lab Collect, Preventative health care, Print Label By Order Location Medications What How Much When Why Instructions New amlodipine (amLODIPine 5 mg Tab) 1 Tablets By Mouth Every day Hypertension Pickup at [facility]/pharmacy #[id number] Unchanged [facility] Prescription (CPAP supplies) See instructions Obstructive sleep apnea Uses nightly with his CPAP Contact prescribing physician if questions or concerns Pharmacy Information [facility]/pharmacy #[id number]: [address], [place] [id number] [phone] Medications and Immunizations Administered Not Given influenza virus vaccine, inactivated, Patient Refuses Allergies penicillin (Unknown) Problems Ongoing - Any problem that you are currently receiving treatment for. Chronic sinusitis Family history of early CAD Fasting hyperglycemia Hearing loss in left ear Hyperlipidemia, mixed Hypertension IBS (irritable bowel syndrome) Insomnia Left knee pain Left rotator cuff tear Obstructive sleep apnea Preop examination Preventative health care Shift work sleep disorder Tubular adenoma of colon Patient Survey You may receive a survey via text or e-mail asking about your office visit. Please share your experience with us by completing your survey. We appreciate your feedback and thank you for choosing us for your care. Education Materials Steps to Quit Smoking Smoking tobacco is the leading cause of preventable . It can affect almost every organ in the body. Smoking puts you and people around you at risk for many serious, long-lasting (chronic) diseases. Quitting smoking can be hard, but it is one of the best things that you can do for your health. It is never too late to quit. Do not give up if you cannot quit the first time. Some people need to try many times to quit. Do your best to stick to your quit plan, and talk with your doctor if you have any questions or concerns. How do I get ready to quit? Pick a date to quit. Set a date within the next 2 weeks to give you time to prepare. ??? Write down the reasons why you are quitting. Keep this list in places where you will see it often. ??? Tell your family, friends, and co-workers that you are quitting. Their support is important. ??? Talk with your doctor about the choices that may help you quit. ??? Find out if your health insurance will pay for these treatments. ??? Know the people, places, things, and activities that make you want to smoke (triggers). Avoid them. What first steps can I take to quit smoking? Throw away all cigarettes at home, at work, and in your car. ??? Throw away the things that you use when you smoke, such as ashtrays and lighters. ??? Clean your car. Empty the ashtray. ??? Clean your home, including curtains and carpets. What can I do to help me quit smoking? Talk with your doctor about taking medicines and seeing a counselor. You are more likely to succeed when you do both. If you are or : ??? Talk with your doctor about counseling or other ways to quit smoking. ??? Do not take medicine to help you quit smoking unless your doctor tells you to. Quit right away ??? Quit smoking completely, instead of slowly cutting back on how much you smoke over a period of time. Stopping smoking right away may be more successful than slowly quitting. ??? Go to counseling. In-person is best if this is an option. You are more likely to quit if you go to counseling sessions regularly. Take medicine You may take medicines to help you quit. Some medicines need a prescription, and some you can buy gthw-pwi-rjflgbv. Some medicines may contain a drug called nicotine to replace the nicotine in cigarettes. Medicines may: ??? Help you stop having the desire to smoke (cravings). ??? Help to stop the problems that come when you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 would like for him to see his orthopedic surgeon, Janusz Coelho, to ensure his shoulder is ok Return here PRN Result Comment: Electronical ly Signed By: Danny Gan DO.samira\Date and Time Signed: 06/06/24 12:55 EDT ALLERGIES DATE TYPE / CODE NAME / CODE REACTION SEVERITY SOURCE /[id number](SNOMED CT) [facility] [id number] [facility] ENCOUNTERS ADMIT/DISCHARGE ACCOUNT NUMBER ADMITTING ENCOUNTER CLASS LOCATION SOURCE 12/24/2024/ 025 [id number] Ambulatory Building:[facility] 12/20/2024/ 025 [id number] Ambulatory Building:[facility] 12/17/2024/05/13/2 025 [id number] Ambulatory Building:[facility] EPIC 12/13/2024/ 025 [id number] Ambulatory Building:[facility] EP[facility] 12/10/2024/ 025 [id number] Ambulatory Building:[facility] EP[facility] 12/06/2024/ 025 [id number] Ambulatory Building:[facility] EPIC 12/05/2024/ 025 [id number] Ambulatory Building:[facility] ORTHO [facility] EPIC 12/03/2024/ 025 [id number] Ambulatory Building:[facility] EP[facility] 11/29/2024/ 025 [id number] Ambulatory Building:[facility] 11/26/2024/ 025 [id number] Ambulatory Building:[facility] EP[facility] 11/21/2024/ 025 [id number] Ambulatory Building:[facility] EPIC 11/18/2024/ 025 [id number] Ambulatory Building:[facility] EP[facility] 11/13/2024/ 025 [id number] Ambulatory Building:[facility] EP[facility] 11/08/2024/ 025 [id number] Ambulatory Building:[facility] EP[facility] 11/07/[id number] Ambulatory FTMCBuilding:F T DTY [facility] 11/04/2024/ 025 [id number] Ambulatory Building:[facility] 11/01/2024/ 025 [id number] Ambulatory Building:[facility] 10/30/2024/ 025 [id number] Ambulatory Canjilon PCBuilding:Kennethw alk PCRoom: Exam 11 [facility] 10/28/2024/03/24/2 025 [id number] Ambulatory Building:[facility] 10/25/2024/ 025 [id number] Ambulatory Building:[facility] 10/23/2024/ 025 [id number] Ambulatory Building:[facility] 10/22/2024/ 025 [id number] Ambulatory Building:[facility] 10/22/2024 [id number] Dmitri RAGLAND Ambulatory FTMCBuilding:FT [facility] 10/22/2024/ 025 [id number] Dmitri RAGLAND Ambulatory FTMCBuilding:FT LAB [facility] 09/24/2024/ 025 [id number] Ambulatory Building:[facility] 09/24/2024/ 025 [id number] Ambulatory Building:[facility] 09/13/2024/ 025 [id number] DO Janusz Coelho Ambulatory FTMCBuilding: Room: MD94Ddx: [address] [place] [address] 09/05/2024/ 025 [id number] Ambulatory Canjilon PCBuilding:Norw alk PCRoom: Exam 11 [facility] 08/30/2024/ 025 [id number] Ambulatory Canjilon PCBuilding:Norw alk PCRoom: Exam 11 [facility] 08/29/2024/ 025 [id number] Ambulatory Building:[facility] 08/29/2024 [id number] DO Janusz Coelho Ambulatory FTMCBuilding:FT [facility] 08/29/2024/ 025 [id number] DO Janusz Coelho Ambulatory FTMCBuilding:FT [facility] 07/23/2024/ 024 [id number] Ambulatory Building:[facility] 07/18/2024/ 024 [id number] DO Janusz Coelho Ambulatory FTMCBuilding:FT [facility] 06/27/2024/ 024 [id number] Ambulatory Building:[facility]THO [facility] 06/27/2024/ 024 [id number] Ambulatory Building:[facility] ORTHO [facility] 06/06/2024 [id number] Ambulatory Occupational Health and WellnessBuildin g:Occupational Health and Wellness [facility] 05/29/2024/ 024 [id number] Ambulatory Canjilon PCBuilding:Shanda CACERES [facility] PAYERS ENCOUNTER GUARANTOR PAYER SUBSCRIBER SOURCE 12/24/2024 [id number] k [facility] RailroadDOB: [place] [address]Zyw: (HP)ASIA GOODFITDOB: [place] [address]Xfv: ~(4 19 (HP) Primary Insurance:GENERIC WORKERS' COMPPolicy Number: [id number] Date:2024-05-28 [facility]Bed[facility] [address] [place] [id number] [place] [address] Medical Specialists [facility] 12/20/[id number] [facility] [address] CenterilroadDOB: [place] [address]Mey: (HP)ASIA GOODFITDOB: [place]IGH [facility] [place] [address]Tsu: ~(4 19 (HP) Primary Insurance:GENERIC WORKERS' COMPPolicy Number: [id number] Date:2024-05-28 HotLinkAvidbotsNOR-LEA [facility] [address] [place] [address] [facility] EPIC 12/17/2024 [id number] k [facility] RailroadDOB: [place] [address]Orl: (HP)ASIA Guzman MOFFITDOB: [place] [address]Xev: ~(4 19 (HP) Primary Insurance:GENERIC WORKERS' COMPPolicy Number: [id number] Date:2024-05-28 [facility] [address] [place] [address]29 [facility] EPIC 12/13/2024 [id number] k [facility] [place] [address]Mkx: (HP)ASIA GOODFITDOB: [place] [address]Dsa: ~(4 19 (HP) Primary Insurance:GENERIC WORKERS' COMPPolicy Number: [id number] Date:2024-05-28 [facility] [address] [place] [address] 27988 [facility] EPIC 12/10/2024 [id number] k [facility] [place] [address]Bhy: (HP)ASIA Guzman MOFFITDOB: [facility] [place] [address]Bcr: ~(4 19 (HP) Primary Insurance:GENERIC WORKERS' COMPPolicy Number: [id number] Date:2024-05-28 [facility] [address] [place] [address]602 [facility] EPIC 12/06/2024 [id number] k [facility] HospitalroadD[facility]: [facility] [place] [address]Jyr: (HP)ASIA Guzman MOFFITDOB: [facility] [place] [address]Khd: ~(4 19 (HP) Primary Insurance:GENERIC WORKERS' COMPPolicy Number: [id number] Date:2024-05-28 [facility] [address] [place] [address] 20671 [facility] EPIC 12/05/2024 [id number] k [facility] RailroadDOB: [place] [address]Ach: (HP)ASIA GOODFITDOB: [place] [address]Esf: ~(4 19 (HP) Primary Insurance:GENERIC WORKERS' COMPPolicy Number: [id number] Date:2024-05-28 HotLinkAvidbotsNOR-[facility] [address] [place] [address] 18703 [facility] EPIC 12/03/2024 [id number] k [facility] RailroadDOB: [place] [address]Vuh: (HP)ASIA GOODFITDOB: [place] [address]Uxw: ~(4 19 (HP) Primary Insurance:GENERIC WORKERS' COMPPolicy Number: [id number] Date:2024-05-28 [facility] [address] [place] [address] [facility] EPIC 11/29/2024 [id number] k [facility] RailroadDOB: [place] [address]Jmt: (HP)ASIA GOODFITDOB: [place] [address]Nfd: ~(4 19 (HP) Primary Insurance:GENERIC WORKERS' COMPPolicy Number: [id number] Date:2024-05-28 [facility]ST[facility] [address] [place] [address] [facility] EPIC 11/26/2024 [id number] k [facility] RailroadDOB: [place] [address]Ziw: (HP)ASIA GOODFITDOB: [place] [address]Gnz: ~(4 19 (HP) Primary Insurance:GENERIC WORKERS' COMPPolicy Number: [id number] Date:2024-05-28 [employer] [facility] [address] [place] [address] Medical Specialists EPIC 11/21/2024 [id number] k [facility] RailroadDOB: [place] [address]Pbt: (HP)ASIA Guzman MOFFITDOB: [place] [address]Uod: ~(4 19 (HP) Primary Insurance:GENERIC WORKERS' COMPPolicy Number: [id number] Date:2024-05-28 [facility] [address] [place] [address] Medical Specialists EPIC 11/18/2024 [id number] k [facility] HospitalroadDOB: [place] [address]Nln: (HP)ASIA GOODFITDOB: [place] [address]Jmz: ~(4 19 (HP) Primary Insurance:GENERIC WORKERS' COMPPolicy Number: [id number] Date:2024-05-28 [facility] [address] [place] [address] Medical Specialists EPIC 11/13/2024 [id number] k [facility] RailroadDOB: [place] [address]Sih: (HP)ASIA GOODFITDOB: [place] [address]Nlz: ~(4 19 (HP) Primary Insurance:GENERIC WORKERS' COMPPolicy Number: [id number] Date:2024-05-28 [facility] [address] [place] [address] [facility] EPIC 11/08/2024 [id number] k [facility] [place] [address]Yxr: (HP)ASIA GOODFITDOB: [place] [address]Xxy: ~(4 19 (HP) Primary Insurance:GENERIC WORKERS' COMPPolicy Number: [id number] Date:2024-05-28 [facility] [address] [place] [address] [facility] Medical [facility] EPIC 11/07/2024 ASIA GOODFITDOB: [facility] STTel: ~(4 19 (HP) Primary Insurance:Worker's CompensationPolicy Number: [id number] Date:2024-11-05 ASIA Guzman [facility] 11/07/2024 Secondary Insurance:AETNAPolicy Number: [id number] Date:5014-24-64[address] [address]CF: ASIA Guzman [facility] 11/04/2024 [id number] k [facility] HospitalroadDOB: [place] [address]Thl: (HP)ASIA Guzman [facility]FFALOFITD[place]: [place] [address]Kzc: ~(4 19 (HP) Primary Insurance:GENERIC WORKERS' COMPPolicy Number: [id number] Date:2024-05-28 [employer] [facility] [address] [place] [address] [facility] Medical [facility] EPIC 11/01/2024 [id number] k [facility] [place] [address]Rax: (HP)ASIA GOODFITDOB: [place] [address]Prr: ~(4 19 (HP) Primary Insurance:GENERIC WORKERS' COMPPolicy Number: [id number] Date:2024-05-28 [facility] [address] [place] [address] [facility] EPIC 10/30/2024 ASIA GOODFITDOB: HIGH STTel: ~(4 19 (HP) Primary Insurance:AETNAPolicy Number: [id number] Date:0629-84-28[address] [address]WG: ASIA GOODSelect [facility] 10/28/2024 [id number] k [facility] RailroadDOB: [place] [address]Tkl: (HP)ASIA Guzman [facility]: [place] [address]Lwd: ~(4 19 (HP) Primary Insurance:GENERIC WORKERS' COMPPolicy Number: [id number] Date:2024-05-28 [facility] [address] [place] [address] [facility] 10/25/2024 [id number] k [facility] RailroadDOB: [place] [address]Wqa: (HP)ASIA Guzman HADDOCKDOB: [place] [address]Shv: ~(4 19 (HP) Primary Insurance:GENERIC WORKERS' COMPPolicy Number: [id number] Date:2024-05-28 [facility] [address] [address] [facility] EPIC 10/23/2024 [id number] k [facility] [place] [address]Eyb: (HP)ASIA A MOFFITDOB: [place] [address]Kfq: ~(4 19 (HP) Primary Insurance:AETNAPolicy Number: [id number] Date:2917-44-28Bthh Name:[facility] [address] [address]OA: ASIA A MOFFITDOB: [id number] [place] [address] [facility] EPIC 10/23/2024 Secondary Insurance:SUMMA HEALTHMayo Galvez Number: [id number] Date:2024-05-28 [facility] EPIC 10/22/2024 ASIA A MOFFITDOB: [place] [address]Tel: (HP) Primary Insurance:AETNAPolicy Number: [id number] Date:7722-56-30Bnjy Name:[facility] [address] [place] [address]MU: ASIA A MOFFITDOB: [id number] [place] [address] [facility] EPIC 10/22/2024 ASIA A MOFFITDOB: [facility] STTel: (HP) Primary Insurance:AETNAPolicy Number: [id number] Date:0814-72-35CQ [address] [place] [place] [address]DL: ASIA A MOFFITANIYA [facility] 10/22/2024 AISA GOODFITDOB: HIGH STTel: ~(4 19 (HP) Primary Insurance:Worker's CompensationPolicy Number: [id number] Date:2024-10-05 ASIA Guzman [facility] 10/22/2024 Secondary Insurance:AETNAPolicy Number: [id number] Date:1764-94-24[place] [address]PO: ASIA Guzman [facility] 09/24/2024 ASIA Guzman MOFFITDOB: [place] [address]Tel: (HP) Primary Insurance:AETNAPolicy Number: [id number] Date:3262-82-15Piow Name:[facility] [address] [address]PL: ASIA Guzman MOFFITDOB: [id number] [place] [address] [facility] 09/24/2024 ASIA GOODFITDOB: [place] [address]Gnb: (HP) Primary Insurance:AETNAPolicy Number: [id number] Date:5816-90-09Arka Name:[facility] [address] [place] [address]WW: ASIA Guzman MOFFITDOB: [id number] [place] [address] [facility] Medical Specialists [facility] 09/13/2024 ASIA Guzman MOFFITDOB: HIGH STTel: ~(4 19 (HP) Primary Insurance:Worker's CompensationPolicy Number: [id number] Date:2024-08-07 ASIA Guzman [facility] 09/13/2024 Secondary Insurance:AETNAPolicy Number: [id number] Date:1135-27-10ZK [address]LLJUL[address] ZHAO [address]SH: ASIA Guzman [facility] 09/05/2024 ASIA Guzman HADDOCKDOB: HIGH STTel: ~(4 19 (HP) Primary Insurance:Worker's CompensationPolicy Number: [id number] Date:2024-08-07 ASIA Guzman [facility] 09/05/2024 Secondary Insurance:AETNAPolicy Number: [id number] Date:0191-06-90[address] [address]KM: ASIA Guzman [facility] 08/30/2024 ASIA Guzman HADDOCKDOB: HIGH STTel: ~(4 19 (HP) Primary Insurance:Worker's CompensationPolicy Number: [id number] Date:2024-08-07 ASIA Guzman [facility] 08/30/2024 Secondary Insurance:AETNAPolicy Number: [id number] Date:3162-04-48[address] [address]PN: ASIA Guzman [facility] 08/29/2024 ASIA Guzman MOFFITDOB: [place] [address]Pio: (HP)[id number] rfolk SouthernDOB: HIGH [facility] [place] [address]Rkh: (HP) Primary Insurance:AETNAPolicy Number: [id number] Date:0105-45-65Vcgv Name:[facility] [address] [address]NQ: ASIA GOODFITDOB: [id number] [place] [address] [facility] EPIC 08/29/2024 ASIA GOODFITDOB: HIGH STTel: [phone] (HP) Primary Insurance:AETNAPolicy Number: [id number] Date:3706-14-85YC [address] [address]UJ: ASIA Guzman [facility] 08/29/2024 ASIA Guzman [facility]: [place]IGH STTel: ~(4 19 (HP) Primary Insurance:Worker's CompensationPolicy Number: [id number] Date:2024-08-07 ASIA Guzman [facility] 08/29/2024 Secondary Insurance:AETNAPolicy Number: [id number] Date:2161-92-81KM [address] [place] [address]NT: ASIA Guzman [facility] 07/23/2024 [id number] rosalia SouthernDOB: [place] [address]Vsa: (HP)ASIA Guzman [facility]: [place] [address]Vcd: (HP) Primary Insurance:[place], INCPolicy Number: [id number] Date:2024-05-[address] [address] [facility] EPIC 07/18/2024 ASIA Guzman MOFFITDOB: HIGH STTel: ~(4 19 (HP) Primary Insurance:Worker's CompensationPolicy Number: [id number] Date:2024-07-08 ASIA Guzman [facility] 07/18/2024 Secondary Insurance:AETNAPolicy Number: [id number] Date:6055-59-76CS [address]ZVJULIAN ROBLERO [address]YQ: ASIA Guzman [facility] 06/27/2024 [id number] k SouthernDOB: [place] [address]Nvh: (HP)ASIA Guzman HADDOCKDOB: [place] [address]Mhs: (HP) Primary Insurance:[place] THUM[place] REGIONMayo Number: [id number] Date:2024-05-[address] [address] [facility] Medical Specialists [facility] 06/27/2024 [id number] k SouthernDOB: [place] [address]Hlh: (HP)ASIA Guzman HADDOCKDOB: [place] [address]Rui: (HP) Primary Insurance:MCLAREN THUMB REGIONCANDICEPolicy Number: [id number] Date:2024-05-[address] [address] [facility] Medical Specialists [facility] 06/06/2024 ASIA Guzman HADDOCKDOB: [facility] STTel: [phone] (HP) Primary Insurance:AEDorotheay Number: [id number] Date:5904-27-69HA [address]JUL[address] RO[address] [address]ER: ASIA Guzman [facility] 05/29/2024 ASIA Guzman HADDOCKDOB: HIGH STTel: [phone] (BM) Primary Insurance:AETNAPolic Number: [id number] Date:8095-90-82CF [address] [place] [address]SN: ASIA Guzman [facility]
--- NOTE | 2024-12-27 02:46 | ECG_ITS ---
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 Measurements Intervals [place] Rate: 89 P: -15 [place]: 160 QRS: 1 QRSD: 92 T: -36 QT: 354 QTc: 400 Interpretive Statements [address] elevation, consider lateral injury or acute infarct [address] depression, possible subendocardial injury STEMI 9150 abnormal ECG No previous ECG available for comparison Electronically Signed On 12-28-2024 9:57:23 EDT by SUREKHA LI M.D.
[2024-12-27 02:58] VITALS: PULSE 75; BMI 44.9
--- NOTE | 2024-12-27 03:04 | ED.CHESTPAI1 ---
HPI - Chest Pain General Stated Complaint: CHEST PAINS Time Seen by Provider: 12/27/24 02:33 Source: patient and family Source comment: patient Mode of arrival: walk-in Limitations comment: patient c/o chest pain- started 1 hour ago. no asa has been taken History of Present Illness HPI narrative: This 49-year-old male with a history of hypertension who is on daily Norvasc and quit smoking in August presents for evaluation of left-sided chest pain that started approximately an hour ago. The patient states his pain actually started before going to bed but he did not pay much attention to it. He woke up this morning with more severe chest pain, shortness of breath and was nauseated. Upon arrival he is extremely uncomfortable and diaphoretic. EKG was done as soon as he was taken to the room which was difficult to read due to patient movement. Repeat EKG was ordered that shows a sinus rhythm at [address] depression and marked ST elevation in leads I and aVL consistent with acute STEMI. I immediately contact Dr. Brown at [facility] and he is excepted for transfer to the [facility]. He is receiving IV fluids, 324 mg aspirin, 180 mg Brilinta, 4 mg of morphine, 4 mg of Zofran and 5000 units of IV heparin. Related Data Home Medications ?Medication ?Instructions ?Recorded ?Confirmed No Known Home Medications 05/28/24 05/28/24 Allergies Allergy/AdvReac Type Severity Reaction Status Date / Time Penicillins Allergy Mild other Verified 05/28/24 20:12 Review of Systems ROS Status of ROS 10 or more systems reviewed and unremarkable except as noted in history and below PFSH PFSH Social History Little interest or pleasure in doing things: not at all Feeling down, depressed, or hopeless: not at all Exam Narrative Exam Narrative: Vital signs and Nursing Notes reviewed: General: Awake, alert, oriented, anxious uncomfortable appearing overweight male, no respiratory distress, he is hyperventilating HEENT: Normocephalic atraumatic, mucous membranes are moist and pink, eyes are clear, normal conjunctiva, vision is grossly intact Neck: Supple, no meningeal signs, no JVD Chest: Lungs are clear to auscultation with good air entry, there is no wheezing rhonchi or rales appreciated no accessory muscle use, patient is speaking in complete sentences-no chest wall tenderness to palpation CVS: Regular rate and rhythm S1-S2, no murmurs rubs or gallops, pulses are brisk and equal bilaterally ABD: Soft, nondistended, nontender, no rebound guarding or rigidity, bowel sounds are normal, no pulsatile masses appreciated Extremities: Moving all extremities Skin: Normal in appearance without rash,pallor, petechiae or purpura Neuro: No focal deficits Constitutional Vital Signs, click to edit/add: Last Vital Signs Pulse 75 12/27/24 02:58 Resp 20 12/27/24 02:58 BP 150/91 H 12/27/24 03:13 Pulse Ox 100 12/27/24 03:13 Course Vital Signs Vital signs: Vital Signs Pulse Rate 75 12/27/24 02:58 Respiratory Rate 20 12/27/24 02:58 Pulse Rate 75 12/27/24 02:58 Respiratory Rate 20 12/27/24 02:58 Blood Pressure 150/91 H 12/27/24 03:13 Pulse Oximetry 100 12/27/24 03:13 MDM - Chest Pain MDM Narrative Medical decision making narrative: This 49-year-old male presents for evaluation of left-sided chest pain. The pain started before going to bed last night but he ignored it but woke up with more severe chest pain. He is morbidly obese. He has a history of hypertension and is on amlodipine. He quit smoking in August after having acupuncture. Upon arrival he was extremely agitated. First EKG was concerning for a STEMI but the patient was moving. His chest was shaved and a repeat EKG was ordered that showed ST segment elevation in leads I aVL with reciprocal changes. I immediately ordered aspirin, Brilinta, morphine, Zofran and 5000 units of heparin. I spoke to Dr. Ori Brown at [facility], cardiology on-call. He reviewed the EKG and was in agreement with my interpretation of acute ST segment elevation DE. The patient was transported emergently to [facility]. He did receive 2 doses of IV morphine for his pain with mild clinical improvement. He remained hemodynamically stable while in the emergency department without any arrhythmia or other notable abnormality. 1 view chest x-ray did not show any acute findings or widened mediastinum. CBC, comprehensive metabolic profile and troponin were ordered but still pending at the time of transfer. ECG Data Attestation: I personally reviewed and interpreted this ECG as follows: (Sinus rhythm 89 bpm, ST elevation is noted in leads I and aVL. Reciprocal changes are noted in leads III, aVF, V4, V2 and V3,) Heart Score History: Highly Suspicious ECG: Sign. ST Depression Age: >45-<65 years Risk Factors: 1 or 2 Risk Factors Critical Care Time Critical Care Time Critical Care Time: Yes Total Critical Care Time: 35 Attestation: This patient presents with a left-sided chest pain with shortness of breath dizziness diaphoresis. EKG done upon arrival shows a ST segment elevation. Due to the high probability of sudden and clinically significant deterioration in his condition he required the highest level of my preparedness to intervene urgently. I provided critical care time including documentation time medication orders and management reevaluation vital sign assessment discussion with consulting revenue officer and transfer orders. Aggregate critical care evidenced 35 minutes. Discharge Plan Discharge Clinical Impression: ST elevation (STEMI) myocardial infarction Patient Disposition: [facility] Time of Disposition Decision: 02:56 Discharge Location: [facility] Mode of Transportation: EMS
[2024-12-27] MEDS: HEPARIN SODIUM (PORCINE) 5,000 UNIT/ML VIAL 5000 UNIT IV (03:07)
[2024-12-27] MEDS: TICAGRELOR 90 MG TABLET 180 MG PO (03:07)
[2024-12-27] MEDS: MORPHINE SULFATE 4 MG/ML VIAL IV ×2 (03:07→03:30)
[2024-12-27] MEDS: ONDANSETRON PF 4 MG/2 ML VIAL IV (03:08)
[2024-12-27] MEDS: ASPIRIN 81 MG TAB.CHEW 324 MG PO (03:09)
[2024-12-27 03:13] VITALS: BP 150/91; O2SAT 100
[2024-12-27] MEDS: 0.9 % SODIUM CHLORIDE 1,000 ML 200 ML IV (03:37)
[2024-12-27 04:02] LABS: Basophils Absolute Auto 0.1 10^3/uL (0.0-0.1); Basophils Percent Auto 1.1 % (0.2-2.0); Eosinophils Absolute Auto 0.3 10^3/uL (0.0-0.7); Eosinophils Percent Auto 2.5 % (0.9-7.0); Hematocrit 50.6 % (42.0-54.0); Hemoglobin 17.2 g/dL (14.0-18.0); Immature Granulocytes Abs Auto 0.17 10^3/uL (0.00-0.03); Immature Granulocytes Pct Auto 1.3 % (0.0-0.5); Lymphocytes Absolute Auto 4.8 10^3/uL (1.2-3.8); Lymphocytes Percent Auto 36.6 % (20.5-60.0); Mean Corpuscular Hemoglobin 30.4 pg (25.9-34.0); Mean Corpuscular Volume 89.6 fL (80.0-94.0); Mean Platelet Volume 11.1 fL (9.5-13.5); Monocytes Absolute Auto 0.9 10^3/uL (0.3-0.8); Monocytes Percent Auto 7.2 % (1.7-12.0); Neutrophils Absolute Auto 6.7 10^3/uL (1.4-6.5); Neutrophils Percent Auto 51.3 % (43.0-75.0); Platelet Count 285 10^3/uL (150-450); Red Blood Count 5.65 10^6/uL (4.70-6.10); Red Cell Distribution Width 12.2 % (11.0-15.0); White Blood Count 13.1 10^3/uL (4.0-11.0)
== END 2024-12-27 03:35 | disposition short-term general hospital (02) ==
PROVIDERS: Emergency Provider Emergency Medicine; PCP Internal Medicine
DX: I21.3 ST elevation (STEMI) myocardial infarction of unspecified site (principal); E66.01 Morbid (severe) obesity due to excess calories; I10 Essential (primary) hypertension; Z79.899 Other long term (current) drug therapy; Z68.42 Body mass index [BMI] 45.0-49.9, adult
CPT/HCPCS: 36415; 71045; 80053; 84484; 85025; 93005; 96374; 96375; 99285; J1644; J2270; J2405

== ENCOUNTER 2025-05-13 07:13 | Outpatient (RCR) | payer OTHER, SELFPAY ==
--- NOTE | 2025-01-06 14:34 | CR1_ITS ---
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 Electronically Signed On 01-08-2025 16:41:04 EDT by Bhaskar Penn
--- NOTE | 2025-01-08 14:46 | CR1_ITS ---
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 Electronically Signed On 01-08-2025 16:43:25 EDT by Bhaskar Penn
--- NOTE | 2025-01-30 08:12 | CR1_ITS ---
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 Electronically Signed On 01-30-2025 15:30:26 EDT by Bhaskar Penn
--- NOTE | 2025-03-06 08:45 | CR1_ITS ---
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 Interpretive Statements Patient may continue cardiac rehab as outlined in the treatment plan. Electronically Signed On 03-14-2025 10:23:18 EDT by SUREKHA LI M.D.
--- NOTE | 2025-04-03 07:17 | CR1_ITS ---
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 Order Number: [id number] Reading MD: Misty Patrick Interpretive Statements Session Date: Electronically Signed On 04-04-2025 13:28:38 EDT by Misty Patrick
--- NOTE | 2025-05-05 08:16 | CR1_ITS ---
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 Interpretive Statements Patient may continue cardiac rehab as outlined in the treatment plan. Electronically Signed On 05-06-2025 20:04:47 EDT by SUREKHA LI M.D.
--- NOTE | 2025-05-13 14:38 | CR1_ITS ---
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 Interpretive Statements Electronically Signed On 05-13-2025 18:11:29 EDT by SUREKHA LI M.D.
== END 2025-05-13 14:20 | disposition home or self-care (01) ==
LOC: CR 07:13
PROVIDERS: PCP Internal Medicine; Visit Provider Internal Medicine Cardiovascular Disease
DX: I25.2 Old myocardial infarction (principal); I25.10 Atherosclerotic heart disease of native coronary artery without angina pectoris; Z98.61 Coronary angioplasty status
CPT/HCPCS: 93798